=== PATIENT | female | born 1925 | race Caucasian/White ===

== ENCOUNTER 2016-04-01 07:15 | Inpatient (IN) | payer OTHER, MEDICARE ==
[~2016-04-01] VITALS: Ht 152.4 cm; Wt 72.1 kg
[~2016-04-01 07:15] MED LIST: ATORVASTATIN CA20 M1 PO; BENICAR20 M1 PO; MACROBID 100 M100 MG PO; METOPROLOL TART25 M1 PO
--- NOTE | 2016-04-01 07:19 | ED GENERAL ADULT ---
History of Present Illness General Chief Complaint: General Adult Stated Complaint: BIBA BLACK TARRY STOOL Source: patient, EMS Exam Limitations: confusion, dementia, poor historian Vital Signs & Intake/Output Vital Signs & Intake/Output Vital Signs Date Time Temp Pulse Resp B/P Pulse O2 O2 Flow FiO2 Ox Delivery Rate 04/02 0900 66 116/78 04/02 0900 66 116/78 04/02 0651 98.5 65 20 118/58 96 Room Air 04/01 2243 97 Nasal 2.0L Cannula 04/01 2204 98.8 73 20 132/70 91 Room Air 04/01 1517 98.7 70 20 160/70 97 04/01 1413 Nasal 2.0L Cannula ED Intake and Output 04/02 0000 04/01 1200 Intake Total 955 0 Output Total 150 Balance 805 0 Intake, IV 475 Intake, Oral 480 0 Number 3 Bowel Movements Output, Urine 150 Patient 159 lb 140 lb Weight Allergies Coded Allergies: No Known Allergies (04/01/16) Reconcile Medications Acetaminophen (Acephen) 650 MG SUPP.RECT 1 SUPP GA Q4 PRN PAIN OR TEMP >100 ( Reported) Acetaminophen (Mapap) 500 MG CAPSULE 1 CAP PO Q4 PRN PAIN OR TEMP > 100 ( Reported) Aspirin (Aspirin*) 81 MG TAB.CHEW 1 TAB PO DAILY HEART HEALTH (Reported) Atorvastatin Calcium 20 MG TABLET 1 TAB PO DAILY CHOLESTEROL (Reported) Bisacodyl (Bisac-Evac) 10 MG SUPP.RECT 1 SUPP GA DAILY PRN CONSTIPATION ( Reported) Ferrous Sulfate 325 MG (65 MG IRON) TABLET 1 TAB PO DAILY SUPPLEMENT ( Reported) Magnesium Hydroxide (Milk Of Magnesia) 400 MG/5 ML ORAL.SUSP 30 ML PO DAILY PRN CONSTIPATION (Reported) Memantine HCl (Namenda) 10 MG TABLET 1 TAB PO Q12HR ALZHEIMERS (Reported) Metoprolol Tartrate 25 MG TABLET 0.5 TAB PO Q12 HTN (Reported) HOLD FOR SBP < 100 OR HR < 60 Multivitamin (Daily Multiple Vitamin) 1 EACH TABLET 1 TAB PO DAILY SUPPLEMENT (Reported) Na Phos,M-B/Na Phos,Di-Ba (Fleet Enema) 19 GRAM-7 GRAM/118 ML ENEMA 1 E RC DAILY PRN CONSTIPATION (Reported) IF BISACODYL SUPP INEFFECTIVE Olmesartan Medoxomil (Benicar) 20 MG TABLET 1 TAB PO DAILY BLOOD PRESSURE ( Reported) Trazodone HCl 50 MG TABLET 0.5 TAB PO AT BED TIME PRN INSOMNIA (Reported) Vitamin E (Dl,Tocopheryl Acet) (Vitamin E) 400 UNIT CAPSULE 1 CAP PO DAILY SUPPLEMENT (Reported) Triage Nurses Notes Reviewed? yes Onset: Abrupt Duration: day(s): Timing: recent history HPI: 04/01/16 89-year-old female with a past medical history of dementia presents to the emergency department with black tarry stools for the past 2 days. the onset of the symptoms was abrupt. duration of the symptoms was 48 hours. the severity was significant; as her symptoms required to come to the emergency department for care. there is no history of vomiting. no abdominal pain. history is limited as she has dementia. Past History Travel History Traveled to [place] past 21 day No Medical History Any Pertinent Medical History? see below for history Neurological: dementia EENT: macular degeneration Cardiovascular: hypertension, hyperlipidemia Surgical History Surgical History: non-contributory, hysterectomy, thyroid surg, breast surg Psychosocial History Who do you live with Patient/Self Services at Home None What is your primary language Thai Family History Hx Contributory? No Review of Systems Review of Systems Constitutional: Denies: fever. EENTM: Reports: no symptoms. Respiratory: Reports: no symptoms. Cardiovascular: Reports: no symptoms. GI: Reports: bloody stool. Denies: abdominal pain, vomiting. Genitourinary: Reports: no symptoms. Musculoskeletal: Reports: no symptoms. Skin: Reports: no symptoms. Neurological/Psychological: Reports: confusion. Hematologic/Endocrine: Reports: bleeding. Immunologic/Allergic: Reports: no symptoms. Physical Exam Physical Exam General Appearance: anxious, mild distress Head: atraumatic Eyes: Bilateral: normal appearance, PERRL, EOMI. Ears, Nose, Throat: normal pharynx Neck: supple Respiratory: normal breath sounds, chest non-tender, no respiratory distress Cardiovascular: regular rate/rhythm Gastrointestinal: soft, non-tender Rectal: heme positive stool, done by emergency medical technician/driver Back: normal range of motion Extremities: no edema Neurologic/Psych: awake, alert Skin: pallor Core Measures ACS in differential dx? No CVA/TIA Diagnosis: No Severe Sepsis Present: No Septic Shock Present: No Progress Differential Diagnoses I considered the following diagnoses in my evaluation of the patient: [ carcinoma, diverticulosis, ischemic colitis, upper GI bleed] Plan of Care: Orders Procedure Date/time Status Patient Safety Monitor 04/02 0941 Active CBC WITHOUT DIFFERENTIAL 04/02 0600 Complete Lab Add-on Test 04/02 UNK Active Clear Liquid Diet 04/01 D Active CBC WITHOUT DIFFERENTIAL 04/01 1700 Complete Pain Treatment and Response 04/01 1511 Active Vital Signs 04/01 1412 Active Teach/Educate 04/01 141 Active Nutritional Intake, Monitor 04/01 1412 Active Isolation 04/01 1412 Active Intake & Output 04/01 1412 Active Patient Care Conference 04/01 1412 Active Activity/Ambulation 04/01 1412 Active Activity/Ambulation 04/01 1406 Active PT Evaluate & Treat 04/01 1208 Active Pathway - chart 04/01 1208 Active House Staff 04/01 1208 Active Patient Data 04/01 1208 Active Code Status 04/01 1208 Active MAGNESIUM 04/01 0726 Complete Therapeutic Activities 04/01 UNK Complete PT EVAL LOW COMPLEX 20 MIN 04/01 UNK Complete Gait Training 04/01 UNK Complete VTE Mechanical Prophylaxis 04/01 UNK Active Patient Safety Monitor 04/01 UNK Complete PHARMACY COMMUNICATION FORM 04/01 UNK Active Current Medications Sig/Ines Start time Last Medication Dose Stop Time Status Admin Acetaminophen 650 MG Q6-PRN PRN 04/01 1430 AC (Tylenol) Laboratory Tests 04/02/16 0638: CBC w Diff NO MAN DIFF REQ, RBC 2.73 L, MCV 84.9, MCH 28.5, RDW 15.1 H, MPV 11.1 H, Gran % 63.9, Lymphocytes % 25.9, Monocytes % 9.4 H, Eosinophils % 0.4, Basophils % 0.4, Absolute Granulocytes 5.3, Absolute Lymphocytes 2.1, Absolute Monocytes 0.8 H, Absolute Eosinophils 0, Absolute Basophils 0, PUBS MCHC 33.5 04/01/16 1701: CBC w Diff NO MAN DIFF REQ, RBC 2.87 L, MCV 85.4, MCH 28.2, RDW 15.3 H, MPV 10.8 H, Gran % 64.3, Lymphocytes % 23.6, Monocytes % 11.4 H, Eosinophils % 0.3 , Basophils % 0.4, Absolute Granulocytes 4.7, Absolute Lymphocytes 1.7, Absolute Monocytes 0.8 H, Absolute Eosinophils 0, Absolute Basophils 0, PUBS MCHC 33.0 Initial ED EKG: NSR, pac Prior EKG: unchanged Departure Departure Disposition: STILL A PATIENT Condition: Stable Clinical Impression Primary Impression: GI bleed Referrals: MINH BROWN,ERROL Carranza (PCP/Family) Departure Forms: Customer Survey General Discharge Information Admission Note Spoke With: SAMSON BROWN,DAVIDITH Documentation of Exam: Documentation of any treatments & extenuating circumstances including Concerns Regarding Discharge (functional status, medication knowledge or non-compliance, living conditions, etc.) that warrant an admission rather than observation: [The patient needs admission for serial hemoglobin and hematocrits, CT angiogram vs bleeding scan, GI consultation. The MOD was informed, GI evaluated the patient, the patient will need a CTA or bleeding scan] Critical Care Note Critical Care Note Critical Care Time: 30-74 min Comments: CT negative for definitive mass. patient received IV fluids. GI consultation was obtained in the emergency department. she was admitted to the hospital for further care.
--- NOTE | 2016-04-01 07:22 | NUR ---
PT BIBA FROM [facility] FOR BLACK TARRY STOOLS WITH BLOOD CLOTS IN IT FOR THE LAST TWO DAYS. PT OFFERS NO COMPLAINTS, BASELINE CONFUSED. PT'S COLOR WNL. PT ALSO TAKING IRON.
[2016-04-01] MEDS ORDERED: TRAZODONE HCL50 M1 PO (07:30)
[2016-04-01] MEDS ORDERED: ASPIRIN81 M4 PO (07:33)
[2016-04-01] MEDS ORDERED: BENICAR20 M1 PO (07:34)
--- NOTE | 2016-04-01 07:34 | NUR ---
IV EST. BLOODWORK SENT (LAV, SST, BLUE, CHOWDARY, PINK)
[2016-04-01] MEDS ORDERED: VITAMIN E400 UNI1 PO (07:35)
[2016-04-01] MEDS ORDERED: FERROUS SULFAT325 M3 PO (07:36)
[2016-04-01] MEDS ORDERED: NAMENDA10 M2 PO (07:37)
--- NOTE | 2016-04-01 07:39 | NUR ---
PER STUDENT, RECTAL EXAM COMPLETED - "LOTS OF EXTERNAL HEMMORHOIDS. BROWN STOOL, GUAIC POSITIVE"
--- NOTE | 2016-04-01 07:51 | NUR ---
WHILE PT WAS SLEEPING, PT WAS NOTED TO HAVE O2 SAT OF 86-89 % ON RA WITH STEADY WAVEFORM. PT PLACED ON 2L NC OXYGEN WITH IMPROVEMENT OF O2 SAT TO 99%.
[2016-04-01 07:58] LABS: ABSOLUTE BASOPHIL COUNT 0 /CUMM (0.0-0.2); ABSOLUTE EOSINOPHIL COUNT 0 /CUMM (0.0-0.7); BASOPHIL % 0.3 % (0.0-2.0); RED BLOOD CELL CT 3.12 /CUMM (4.20-5.40)
[2016-04-01 07:59] LABS: ABSOLUTE GRANULOCYTE CT 3.9 /CUMM (1.4-6.5); ABSOLUTE LYMPH COUNT 1.8 /CUMM (1.2-3.4); EOSINOPHIL % 0.3 % (0-5); GRANULOCYTE % 57.4 % (42.2-75.2); HEMATOCRIT 26.8 % (37-47); MEAN CORPUSCULAR HGB 28.1 PG (27.0-31.0); MEAN CORPUSCULAR HGB CONC 32.8 G/DL (33.0-37.0); MEAN CORPUSCULAR VOLUME 85.8 FL (81.0-99.0); MEAN PLATELET VOLUME 11.7 FL (7.4-10.4); PLATELET COUNT 174 /CUMM (130-400); WHITE BLOOD CELL COUNT 6.7 /CUMM (4.8-10.8)
--- NOTE | 2016-04-01 08:12 | NUR ---
PER FAMILY, PT LOOKS MORE PALE THAN USUAL AND HAS SEEMED MORE TIRED THAN USUAL. PER DAUGHTER, DR. WILKINSON WANTS PT TO SEE A GI SPECIALIST SINCE THERE HAVE BEEN MULTIPLE EPISODES OF BLOOD IN STOOL. A COUPLE WEEKS AGO PT HAD BLOOD IN STOOL BUT WAS NOT [facility].
[2016-04-01 08:22] LABS: PT 13.4 SEC (9.4-12.5); PTT 28 SEC (25-37)
--- NOTE | 2016-04-01 09:42 | NUR ---
PT TO CAT SCAN VIA STRETCHER.
--- NOTE | 2016-04-01 10:22 | CT SCAN REPORT ---
EXAMINATION: CT ABDOMEN AND PELVIS WITHOUT CONTRAST CLINICAL INFORMATION: GI bleed. Evaluate for mass. COMPARISON: No relevant prior imaging available. TECHNIQUE: Multidetector volumetric imaging was performed from the superior aspect of the liver through the pubic symphysis. Sagittal and coronal reformatted images were obtained on the technologist's workstation. DLP: 367.18 mGy-cm. FINDINGS: The diagnostic accuracy of this examination is limited due to the absence of intravenous contrast. There are numerous diverticula primarily involving the descending and sigmoid colon. A short segment of the sigmoid colon appears be distended with fluid or fecal material for instance best visualized on axial image 428 of 632 series 3. The remainder of the colon is unremarkable. The stomach and small bowel are normal. A tiny hiatal hernia is noted. The appendix is not visualized on this examination however there are no abnormal inflammatory changes within the right lower quadrant to suggest acute appendicitis. Liver attenuation is homogeneous. There is no discrete hepatic mass. No perihepatic fluid collection. The gallbladder is normal. No evidence of cholelithiasis. No abnormal extra hepatic biliary ductal dilatation. The spleen and pancreas are normal. There is mild thickening of the anterior limb of the left adrenal gland. The adrenal glands are otherwise unremarkable. Numerous well marginated cystic lesions are visualized within both kidneys. The architecture of the left kidney is significantly distorted by multiple large cysts. There is no hydroureteronephrosis. No abnormal mass or calcification is visualized along the expected course of the right or left ureters. The urinary bladder is partially distended with fluid. There are chronic changes of a hysterectomy. There is no worrisome adnexal mass. No perirectal or presacral inflammation. There is no free intraperitoneal air or fluid. No worrisome mesenteric or retroperitoneal adenopathy. The abdominal wall is grossly intact with exception of a tiny fat-containing umbilical hernia. There are numerous atheromatous calcification involving the abdominal aorta and iliac vessels. The unenhanced inferior vena cava is grossly unremarkable. Pleural-parenchymal scarring is visualized within the lung bases. There is no pleural or pericardial effusion. The heart is enlarged. There is no worrisome lytic or blastic osseous lesion. There is multilevel degenerative spondylosis of the lower thoracic and lumbar spine with loss of intervertebral disc height and associated sclerotic degenerative endplate changes with intervertebral vacuum disc phenomenon visualized at multiple levels. Grossly there is no evidence of acute fracture. IMPRESSION: The diagnostic accuracy of this examination is limited due to the absence of intravenous contrast. There is a short segment of the sigmoid colon demonstrates a fusiform shape that is filled with fluid or stool. The possibility of an intraluminal mass cannot be definitely excluded on the basis of this examination. Numerous diverticula are visualized within the descending and sigmoid colon. No abnormal inflammatory changes are visualized within the adjoining retroperitoneal or mesenteric fat to suggest the presence of acute diverticulitis. There are numerous benign-appearing cystic lesions visualized within both kidneys. There is advanced multilevel degenerative spondylosis of the lower thoracic and lumbar spine. No evidence of acute fracture.
--- NOTE | 2016-04-01 11:24 | NUR ---
pt admitted to room 220-1
--- NOTE | 2016-04-01 11:38 | NUR ---
REPORT GIVEN TO DARINEL SILVA.
--- NOTE | 2016-04-01 11:40 | NUR ---
HOUSE STAFF AT BEDSIDE.
[2016-04-01] MEDS ORDERED: METOPROLOL TART25 M1 PO (12:11)
[2016-04-01] MEDS ORDERED: ACEPHEN650 M1 PR (12:13)
[2016-04-01] MEDS ORDERED: BISAC-EVAC10 M1 PR (12:14)
[2016-04-01] MEDS ORDERED: FLEET ENEMA133 ML RC (12:15)
[2016-04-01] MEDS ORDERED: MAPAP500 M2 PO (12:17)
[2016-04-01] MEDS ORDERED: MILK OF MA400 MG/52 PO (12:18)
[2016-04-01] MEDS ORDERED: DAILY MULTIPLE1 EACH PO (12:20)
--- NOTE | 2016-04-01 13:04 | Cons- Gastroenterology ---
General Information and HPI Consulting Request Date of Consult: 04/01/16 Requested By: AJAY DAVIES MD Reason for Consult: Rectal bleeding, anemia. Change in bowel habits. Source of Information: family, old records Exam Limitations: confusion, dementia History of Present Illness: Ms. Moore is an 89-year-old female with multiple medical problems who is currently residing in [facility] who was sent in to [facility] this morning for reports of bright red blood per rectum and dark stool. Apparently she has been noted to have bright red blood in her diaper over the preceding 2 days and had another bowel movement this morning with blood in it and this bowel movement was also described as black for which she was sent to the emergency room. She has not been complaining of any significant abdominal pain nor has she had any significant nausea or vomiting. Prior to the blood she had reportedly been having normal bowel movements. The family denies ever having bleeding like this in the past. She has also never had a colonoscopy in the past. She is without any complaints of lightheadedness, shortness of breath , or chest pain. In the emergency room she was noted to have dark stool which was found to be guaiac positive, but no gross blood was appreciated. She was also noted to have prominent external hemorrhoids. She has been hemodynamically stable since arrival and she has not had any bowel movements since arriving to the emergency room at approximate 7:00 this morning. Allergies/Medications Allergies: Coded Allergies: No Known Allergies (04/01/16) Home Med List: Acetaminophen (Acephen) 650 MG SUPP.RECT 1 SUPP HI Q4 PRN PAIN OR TEMP >100 ( Reported) Acetaminophen (Mapap) 500 MG CAPSULE 1 CAP PO Q4 PRN PAIN OR TEMP > 100 ( Reported) Atorvastatin Calcium 20 MG TABLET 1 TAB PO DAILY CHOLESTEROL (Reported) Augmentin (Augmentin 500-125 Tablet) 500 MG-125 MG TABLET 500 MG PO Q12 diverticulitis Bisacodyl (Bisac-Evac) 10 MG SUPP.RECT 1 SUPP HI DAILY PRN CONSTIPATION ( Reported) Ferrous Sulfate 325 MG (65 MG IRON) TABLET 1 TAB PO DAILY SUPPLEMENT ( Reported) Magnesium Hydroxide (Milk Of Magnesia) 400 MG/5 ML ORAL.SUSP 30 ML PO DAILY PRN CONSTIPATION (Reported) Memantine HCl (Namenda) 10 MG TABLET 1 TAB PO Q12HR ALZHEIMERS (Reported) Metoprolol Tartrate 25 MG TABLET 0.5 TAB PO Q12 HTN (Reported) HOLD FOR SBP < 100 OR HR < 60 Multivitamin (Daily Multiple Vitamin) 1 EACH TABLET 1 TAB PO DAILY SUPPLEMENT (Reported) Na Phos,M-B/Na Phos,Di-Ba (Fleet Enema) 19 GRAM-7 GRAM/118 ML ENEMA 1 E RC DAILY PRN CONSTIPATION (Reported) IF BISACODYL SUPP INEFFECTIVE Olmesartan Medoxomil (Benicar) 20 MG TABLET 1 TAB PO DAILY BLOOD PRESSURE ( Reported) Trazodone HCl 50 MG TABLET 0.5 TAB PO AT BED TIME PRN INSOMNIA (Reported) Vitamin E (Dl,Tocopheryl Acet) (Vitamin E) 400 UNIT CAPSULE 1 CAP PO DAILY SUPPLEMENT (Reported) Current Medications: Current Medications Sig/Ines Start time Last Medication Dose Route Stop Time Status Admin Sodium Chloride 1,000 ML ONCE ONE 04/01 0745 AC 04/01 IV 04/01 1424 0811 Past History Travel History Traveled to [place] past 21 day No Medical History Neurological: dementia EENT: macular degeneration, LEGALLY BLIND Cardiovascular: hypertension, hyperlipidemia Respiratory: NONE Gastrointestinal: NONE Hepatic: NONE Renal: NONE Musculoskeletal: MUSCLE WEAKNESS Psychiatric: insomnia Endocrine: NONE Blood Disorders: NONE Cancer(s): NONE COMBER TENDER/Reproductive: NONE Surgical History Surgical History: non-contributory, hysterectomy, thyroid surg, breast surg Psychosocial History Services at Home: None Review of Systems Review of Systems: A full 12 point review of systems was unobtainable secondary to dementia. Exam & Diagnostic Data Vital Signs and I&O Vital Signs Date Time Temp Pulse Resp B/P Pulse O2 O2 Flow FiO2 Ox Delivery Rate 04/01 1037 98.0 74 18 133/60 98 Room Air 04/01 0728 Room Air Room Air 04/01 0718 97.7 94 15 138/77 92 Room Air Room Air Intake & Output 04/01 1600 04/01 0400 03/31 1600 03/31 0400 03/30 1600 03/30 040 Intake Total 0 Output Total Balance 0 Intake, Oral 0 Patient 140 lb Weight Physical Exam General Appearance: no apparent distress, alert, comfortable Head: atraumatic, normal appearance Eyes: Bilateral: normal appearance. Ears, Nose, Throat: normal pharynx, normal ENT inspection Neck: normal inspection, supple, full range of motion Respiratory: normal breath sounds, chest non-tender, no respiratory distress Cardiovascular: regular rate/rhythm Gastrointestinal: normal bowel sounds, soft, non-tender, no organomegaly Rectal: deferred, dark, guaiac positive stool per ED with external hemorrhoids Back: normal inspection, normal range of motion Extremities: normal inspection, no edema Neurologic/Psych: no motor/sensory deficits, awake, alert Skin: intact, normal color Results Pertinent Lab Results: Laboratory Tests 04/01 0726 Chemistry Sodium (137 - 145 mmol/L) 137 Potassium (3.5 - 5.1 mmol/L) 3.0 L Chloride (98 - 107 mmol/L) 101 Carbon Dioxide (22 - 30 mmol/L) 33 H Anion Gap (5 - 16) 4 L BUN (7 - 17 mg/dL) 15 Creatinine (0.5 - 1.0 mg/dL) 0.6 Estimated GFR (>60 ml/min) > 60 BUN/Creatinine Ratio (7 - 25 %) 25.0 Glucose (65 - 99 mg/dL) 98 Lactic Acid (0.7 - 2.1 mmol/L) 1.0 Calcium (8.4 - 10.2 mg/dL) 8.3 L Total Bilirubin (0.2 - 1.3 mg/dL) 0.7 AST (14 - 36 U/L) 17 ALT (9 - 52 U/L) 27 Alkaline Phosphatase (<127 U/L) 101 Troponin I (< 0.11 ng/ml) < 0.01 Total Protein (6.3 - 8.2 g/dL) 6.1 L Albumin (3.5 - 5.0 g/dL) 3.0 L Globulin (1.9 - 4.2 gm/dL) 3.1 Albumin/Globulin Ratio (1.1 - 2.2 %) 1.0 L Coagulation PT (9.4 - 12.5 SEC) 13.4 H INR (0.90 - 1.19) 1.28 H APTT (25 - 37 SEC) 28 Hematology CBC w Diff NO MAN DIFF REQ WBC (4.8 - 10.8 /CUMM) 6.7 RBC (4.20 - 5.40 /CUMM) 3.12 L Hgb (12.0 - 16.0 G/DL) 8.8 L Hct (37 - 47 %) 26.8 L MCV (81.0 - 99.0 FL) 85.8 MCH (27.0 - 31.0 PG) 28.1 RDW (11.5 - 14.5 %) 15.0 H Plt Count (130 - 400 /CUMM) 174 MPV (7.4 - 10.4 FL) 11.7 H Gran % (42.2 - 75.2 %) 57.4 Lymphocytes % (20.5 - 51.1 %) 26.5 Monocytes % (1.7 - 9.3 %) 15.5 H Eosinophils % (0 - 5 %) 0.3 Basophils % (0.0 - 2.0 %) 0.3 Absolute Granulocytes (1.4 - 6.5 /CUMM) 3.9 Absolute Lymphocytes (1.2 - 3.4 /CUMM) 1.8 Absolute Monocytes (0.10 - 0.60 /CUMM) 1.0 H Absolute Eosinophils (0.0 - 0.7 /CUMM) 0 Absolute Basophils (0.0 - 0.2 /CUMM) 0 PUBS MCHC (33.0 - 37.0 G/DL) 32.8 L Imaging/Other Studies: ct scan: FINDINGS: The diagnostic accuracy of this examination is limited due to the absence of intravenous contrast. There are numerous diverticula primarily involving the descending and sigmoid colon. A short segment of the sigmoid colon appears be distended with fluid or fecal material for instance best visualized on axial image 428 of 632 series 3. The remainder of the colon is unremarkable. The stomach and small bowel are normal. A tiny hiatal hernia is noted. The appendix is not visualized on this examination however there are no abnormal inflammatory changes within the right lower quadrant to suggest acute appendicitis. Liver attenuation is homogeneous. There is no discrete hepatic mass. No perihepatic fluid collection. The gallbladder is normal. No evidence of cholelithiasis. No abnormal extra hepatic biliary ductal dilatation. The spleen and pancreas are normal. There is mild thickening of the anterior limb of the left adrenal gland. The adrenal glands are otherwise unremarkable. Numerous well marginated cystic lesions are visualized within both kidneys. The architecture of the left kidney is significantly distorted by multiple large cysts. There is no hydroureteronephrosis. No abnormal mass or calcification is visualized along the expected course of the right or left ureters. The urinary bladder is partially distended with fluid. There are chronic changes of a hysterectomy. There is no worrisome adnexal mass. No perirectal or presacral inflammation. There is no free intraperitoneal air or fluid. No worrisome mesenteric or retroperitoneal adenopathy. The abdominal wall is grossly intact with exception of a tiny fat-containing umbilical hernia. There are numerous atheromatous calcification involving the abdominal aorta and iliac vessels. The unenhanced inferior vena cava is grossly unremarkable. Pleural-parenchymal scarring is visualized within the lung bases. There is no pleural or pericardial effusion. The heart is enlarged. There is no worrisome lytic or blastic osseous lesion. There is multilevel degenerative spondylosis of the lower thoracic and lumbar spine with loss of intervertebral disc height and associated sclerotic degenerative endplate changes with intervertebral vacuum disc phenomenon visualized at multiple levels. Grossly there is no evidence of acute fracture. IMPRESSION: The diagnostic accuracy of this examination is limited due to the absence of intravenous contrast. There is a short segment of the sigmoid colon demonstrates a fusiform shape that is filled with fluid or stool. The possibility of an intraluminal mass cannot be definitely excluded on the basis of this examination. Numerous diverticula are visualized within the descending and sigmoid colon. No abnormal inflammatory changes are visualized within the adjoining retroperitoneal or mesenteric fat to suggest the presence of acute diverticulitis. There are numerous benign-appearing cystic lesions visualized within both kidneys. There is advanced multilevel degenerative spondylosis of the lower thoracic and lumbar spine. No evidence of acute fracture. Assessment/Plan Assessment/Recommendations: Assessment: Ms. Moore is an 89-year-old female multiple medical problems who has been noted to have bright red blood per rectum over the past 2 days without any significant abdominal pain of uncertain etiology. She has had a moderate drop in her hemoglobin over the past 6 weeks of about 2-3 g, but she is currently hemodynamically stable and has not had any further rectal bleeding since early this morning so I suspect whenever has been bleeding has stopped. Considering the lack of pain it is possible she has had a self-limited diverticular bleed or it is also possible she has been bleeding from hemorrhoids , but it would be a bit unusual for her hemoglobin to fall as much as it did from just hemorrhoidal bleeding. She has never had a colonoscopy before so an occult malignancy is also possible, and her CAT scan did show a possible colonic lesion, but this was limited due to lack of contrast. It is also possible she could be bleeding from an AVM or a dieulafoys lesion and a rapid transit upper GI bleed is also in the differential, however this is very unlikely with her being so stable and not having melena. Considering her advanced age and underlying dementia the family does not want to pursue any invasive testing unless it is absolutely necessary so we'll tentatively only plan to pursue a colonoscopy if life-threatening bleeding ensues. Of note, even if there is a colonic malignancy as the patient's family is not interested in pursuing surgical intervention making this diagnosis is not absolutely necessary. Recognitions: 1. Admit to the medical floor. 2. Keep on a liquid diet for now with nothing red administered. 3. Follow CBCs every 12 hours and transfuse as needed to keep her hemoglobin greater than 8 or as per cardiology recommendations. 4. Hold NSAIDs for now. 5. Check a CT angiogram or tagged red blood cell scan to look for evidence of ongoing active bleeding and would defer to radiology as to which test they would prefer to perform. 6. GI should be notified for any signs of overt, active, hemodynamically significant bleeding, but unless this occurs will tentaively plan to manage this without endoscopic intervention. I will continue to follow this patient and make further recommendations based on her clinical course and results of repeat blood work and imaging. Problem List: 1. GI bleed Copies To: MINH BROWN,ERROL Buckner. Consult Acknowledgment - Thank you for your consult request.
--- NOTE | 2016-04-01 13:05 | History & Physical ---
WILMA DOSS 04/01/16 1305: General Information and HPI Source of Information: family, old records Exam Limitations: confusion, dementia History of Present Illness: She is 84-year-old woman with past medical history of hypertension, hyperlipidemia, recurrent UTIs, dementia and normocytic anemia BIBA from [facility] for black tarry stools with blood clots. First episode was last night and second episode was this morning. Daughters are at bedside. Upon my interview patient is complaining of fatigue but denies any nausea, vomiting, abdominal pain, dizziness or lightheadedness, chest pain or discomfort. She complained for abdominal pain to her daughters. According to [facility] staff patient had blood in her stool 2 weeks ago but it was not investigated. It is first time she is having blood in her stool. She never had colonoscopy in past. No family history of colon cancer. Allergies/Medications Allergies: Coded Allergies: No Known Allergies (04/01/16) Home Med list Acetaminophen (Acephen) 650 MG SUPP.RECT 1 SUPP FL Q4 PRN PAIN OR TEMP >100 ( Reported) Acetaminophen (Mapap) 500 MG CAPSULE 1 CAP PO Q4 PRN PAIN OR TEMP > 100 ( Reported) Aspirin (Aspirin*) 81 MG TAB.CHEW 1 TAB PO DAILY HEART HEALTH (Reported) Atorvastatin Calcium 20 MG TABLET 1 TAB PO DAILY CHOLESTEROL (Reported) Bisacodyl (Bisac-Evac) 10 MG SUPP.RECT 1 SUPP FL DAILY PRN CONSTIPATION ( Reported) Ferrous Sulfate 325 MG (65 MG IRON) TABLET 1 TAB PO DAILY SUPPLEMENT ( Reported) Magnesium Hydroxide (Milk Of Magnesia) 400 MG/5 ML ORAL.SUSP 30 ML PO DAILY PRN CONSTIPATION (Reported) Memantine HCl (Namenda) 10 MG TABLET 1 TAB PO Q12HR ALZHEIMERS (Reported) Metoprolol Tartrate 25 MG TABLET 0.5 TAB PO Q12 HTN (Reported) HOLD FOR SBP < 100 OR HR < 60 Multivitamin (Daily Multiple Vitamin) 1 EACH TABLET 1 TAB PO DAILY SUPPLEMENT (Reported) Na Phos,M-B/Na Phos,Di-Ba (Fleet Enema) 19 GRAM-7 GRAM/118 ML ENEMA 1 E RC DAILY PRN CONSTIPATION (Reported) IF BISACODYL SUPP INEFFECTIVE Olmesartan Medoxomil (Benicar) 20 MG TABLET 1 TAB PO DAILY BLOOD PRESSURE ( Reported) Trazodone HCl 50 MG TABLET 0.5 TAB PO AT BED TIME PRN INSOMNIA (Reported) Vitamin E (Dl,Tocopheryl Acet) (Vitamin E) 400 UNIT CAPSULE 1 CAP PO DAILY SUPPLEMENT (Reported) Past History Travel History Traveled to [place] past 21 day No Medical History Neurological: dementia EENT: macular degeneration, LEGALLY BLIND Cardiovascular: hypertension, hyperlipidemia Respiratory: NONE Gastrointestinal: NONE Hepatic: NONE Renal: NONE Musculoskeletal: MUSCLE WEAKNESS Psychiatric: insomnia Endocrine: NONE Blood Disorders: NONE Cancer(s): 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 Exam & Diagnostic Data Last 24 Hrs of Vital Signs/I&O Vital Signs Date Time Temp Pulse Resp B/P Pulse O2 O2 Flow FiO2 Ox Delivery Rate 04/01 1517 98.7 70 20 160/70 97 04/01 1413 Nasal 2.0L Cannula 04/01 1037 98.0 74 18 133/60 98 Room Air 04/01 0728 Room Air Room Air 04/01 0718 97.7 94 15 138/77 92 Room Air Room Air Intake & Output 04/01 1600 04/01 0800 04/01 0000 Intake Total 75 0 Output Total 150 Balance -75 0 Intake, IV 75 Intake, Oral 0 0 Number 3 Bowel Movements Output, Urine 150 Patient 159 lb 140 lb Weight Physical Exam General Appearance Alert, Cooperative, No Acute Distress, oriented to place and person Skin pale HEENT dry mucous membrabes Neck Supple Cardiovascular Regular Rate, systolic murmur Lungs Clear to Auscultation Abdomen Normal Bowel Sounds, Soft, No Tenderness Neurological Strength at 5/5 X4 Ext, Sensation Intact, Cranial Nerves 3-12 NL Extremities No Edema Last 24 Hrs of Labs/Prakash: Laboratory Tests 04/01/16 0726: Anion Gap 4 L, Estimated GFR > 60, BUN/Creatinine Ratio 25.0, Glucose 98, Lactic Acid 1.0, Calcium 8.3 L, Total Bilirubin 0.7, AST 17, ALT 27, Alkaline Phosphatase 101, Troponin I < 0.01, Total Protein 6.1 L, Albumin 3.0 L, Globulin 3.1, Albumin/Globulin Ratio 1.0 L, PT 13.4 H, INR 1.28 H, APTT 28, CBC w Diff NO MAN DIFF REQ, RBC 3.12 L, MCV 85.8, MCH 28.1, RDW 15.0 H, MPV 11.7 H, Gran % 57.4, Lymphocytes % 26.5, Monocytes % 15.5 H, Eosinophils % 0.3 , Basophils % 0.3, Absolute Granulocytes 3.9, Absolute Lymphocytes 1.8, Absolute Monocytes 1.0 H, Absolute Eosinophils 0, Absolute Basophils 0, PUBS MCHC 32.8 L Diagnostic Data EKG Results Normal sinus rhythm without any acute ST-T wave changes. QTC [address] abdomen and pelvis without IV contrast showed early mild diverticulitis with microperforation. Kidney cysts Assessment/Plan Assessment: She is 84-year-old woman with past medical history of hypertension, hyperlipidemia, recurrent UTIs, dementia and normocytic anemia BIBA from [facility] for black tarry stools with blood clots. Patient did not have any bowel movement since admission. Her stool guaiac was positive. She is hemodynamically stable. Dr. Saucedo already saw the patient and give his recommendations. Daughters are refusing to do any upper GI endoscopy or colonoscopy. They want to do a scan first to see if there is any GI bleed. Problem list 1. GI bleed. CAT scan findings showed mild early diverticulitis with microperforation so it is a possibility that patient is having diverticular bleed and passing blood clots. Black tarry stool could be because of iron supplements that she was taking before admission. 2. Normocytic anemia 3. Hypokalemia Plan Will admit patient to general medicine floor. Monitor vitals closely. We will do CT angiogram to see the site of bleeding. Gentle hydration as patient is nothing by mouth for now. We'll follow further GI recommendations. IV Unasyn for early mild diverticulitis. Call GI if overt GI bleed. Will monitor CBC. Goal hemoglobin is >8. We will transfuse if hemoglobin is less than 8. Pain management with Tylenol and IV morphine. Clear liquid diet. No NSAIDs. Oral PPI. Will monitor electrolytes daily and replete accordingly. Continue iron supplements. Alps for DVT prophylaxis. DNR/DNI. As Ranked By This Provider Problem List: 1. GI bleed Core Measures/Miscellaneous Acute Coronary Syndrome ACS Diagnosis: No Cerebrovascular Accident CVA/TIA Diagnosis: No Congestive Heart Failure CHF Diagnosis: No Venous Thromboembolism VTE Risk Factors: Acute medical illness, Age > 40 VTE Prophylaxis Ordered Inpt: Mechanical (ALPS/TEDS) No Mech VTE prophylaxis d/t: No contraindications No VTE Pharm Prophylaxis d/t: Active bleeding VTE Diagnosis: No VTE Type: NONE VTE Confirmed by (Test): NONE Severe Sepsis Severe Sepsis Present: No Septic Shock Septic Shock Present: No Miscellaneous Documentation Attending Case Discussed With: AJAY DAVIES MD Primary Care Physician: ERROL WILKINSON MD Patient sees these Specialists none Level of Patient Care: General Medicine Consults Needed: Consulting Specialty: Gastroenterology AJAY DAVIES MD 04/01/16 2918: Attending MD Review Statement Attending Statement Attending MD Statement: examined this patient, discuss w/resident/PA/INSPECTOR AND ADJUSTER [employer], agreed w/resident/PA/INSPECTOR AND ADJUSTER [employer], discussed with family, reviewed EMR data (avail) Attending Assessment/Plan: 84-year-old female with history of hypertension, hyperlipidemia, dementia and legally blind who is a current resident at long-term care facility presenting with black tarry stools and blood clots. She complains of abdominal pain. CAT scan suggested diverticulitis and CTA confirmed possible diverticular bleed as the cause of her GI bleed. She does have microabscesses without any obvious perforation. Plan Unasyn Follow cultures Start clear liquid diet Surgical evaluation for possible micro perforation and abscesses Resume all home medication Hold all blood thinners Alps for DVT prophylaxis
[2016-04-01 15:17] VITALS: BP 160/70
--- NOTE | 2016-04-01 16:56 | CT SCAN REPORT ---
EXAMINATION: CT ANGIOGRAM ABDOMEN AND PELVIS CLINICAL INFORMATION: Black and tarry stools with clots. COMPARISON: 04/01/2016 TECHNIQUE: Multiple axial images were obtained through the abdomen and pelvis following the administration of 125 mL of Optiray 350 intravenous contrast. Images were reviewed on a dedicated 3-D workstation. DLP: 874 mGy-cm. FINDINGS: Vascular: 1. 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 There is poststenotic dilatation. 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 The remainder of the celiac axis is patent areas the superior mesenteric artery and inferior mesenteric artery are unremarkable with patent origins. 2. There are 2 right-sided renal arteries and 2 left-sided renal arteries. These are patent. 3. The infrarenal abdominal aorta is normal in course and caliber with mild atherosclerotic disease. 4. The common iliac arteries, internal and external iliac arteries, and common femoral arteries are widely patent. Nonvascular: Right basilar subsegmental atelectasis. The liver is normal in size, shape, and attenuation. The gallbladder is unremarkable. Heterogeneous attenuation of the spleen is likely secondary to the timing of contrast. The pancreas and adrenal glands are unremarkable. No hydronephrosis. There are prominent cysts throughout the left kidney. The largest is seen at the upper pole, measuring 6.2 cm. Within the right kidney, in addition to simple cysts, there is a heterogeneously enhancing mass at the midpole which measures 2.7 x 2.8 x 2.2 cm. The stomach and small bowel appear unremarkable. No obstruction. There is pancolonic diverticulosis. There is wall thickening involving the sigmoid colon, as seen on the recent prior CT. There is adjacent inflammatory change, consistent with diverticulitis. There is a peripherally enhancing region along the superior wall of the sigmoid colon which measures 2.1 x 2.8 x 2.1 cm, which could represent a prominent diverticulum or a peridiverticular abscess. No free air. The bladder is unremarkable. The uterus is not seen. No adnexal mass. No lymphadenopathy. Diffuse atherosclerotic calcifications. Diffuse degenerative changes throughout the spine. Degenerative changes of the hips. IMPRESSION: 1. No significant vascular abnormality. 2. Sigmoid diverticulitis. Suspect small peridiverticular abscess. 3. Enhancing right mid to upper pole renal mass. This is suspicious for neoplasm. This critical result was discussed with Dr. Taylor by telephone at 04/01/2016 4:52 PM and it was ascertained that the content and urgency of the report was understood at the time of direct communication.
--- NOTE | 2016-04-01 17:24 | Event Note ---
Event Note Event Note: Situation: Received a call from radiology for a critical read on a patinets CT/ Angio and abdomen Brief Assesment * CT preliminary read from Dr Gar : No significant vascular abnormality. Sigmoid diverticulitis. Suspect small peridiverticular abscess. Enhancing right mid to upper pole renal mass suspicious for neoplasm. * Contacted surgical team regarding the findings. Surgical team informed me that they have seen the patinet and are aware of the CT findings including the small peridiverticular abscess, and their plan was to continue monitoring with no surgical intervention plan as of now. * Pt is already on Unasyn.
[2016-04-01 17:32] LABS: ABSOLUTE BASOPHIL COUNT 0 /CUMM (0.0-0.2); ABSOLUTE EOSINOPHIL COUNT 0 /CUMM (0.0-0.7); ABSOLUTE GRANULOCYTE CT 4.7 /CUMM (1.4-6.5); ABSOLUTE LYMPH COUNT 1.7 /CUMM (1.2-3.4); ABSOLUTE MONOCYTE COUNT 0.8 /CUMM (0.10-0.60); BASOPHIL % 0.4 % (0.0-2.0); EOSINOPHIL % 0.3 % (0-5); GRANULOCYTE % 64.3 % (42.2-75.2); HEMATOCRIT 24.5 % (37-47); MEAN CORPUSCULAR HGB 28.2 PG (27.0-31.0); MEAN CORPUSCULAR VOLUME 85.4 FL (81.0-99.0); MEAN PLATELET VOLUME 10.8 FL (7.4-10.4); PLATELET COUNT 156 /CUMM (130-400); RBC DISTRIBUTION WIDTH 15.3 % (11.5-14.5); RED BLOOD CELL CT 2.87 /CUMM (4.20-5.40); WHITE BLOOD CELL COUNT 7.3 /CUMM (4.8-10.8)
--- NOTE | 2016-04-01 18:55 | Admission Certification ---
Admission Certification Certification Statement - As attending physician, I certify that at the time of - admission, based on clinical presentation, severity of - symptoms, need for further diagnostic testing and - therapeutic interventions, and risk of adverse outcomes - without in-hospital treatment, in my clinical assessment, - this patient requires an acute hospital stay for a minimum - of two nights or longer. I have also considered psychsocial - factors such as support system, advanced age, financial - issues, cognitive issues, and failed out-patient treatments, - past re-admission history, safety of patient, and lack of - compliance as applicable. Specific rationale supporting this admission is: Diverticulitis
--- NOTE | 2016-04-01 19:26 | Cons- General Surgery ---
HORT[place]IA POND 04/01/16 6029: General Information and HPI Consulting Request Date of Consult: 04/01/16 Requested By[facility] Reason for Consult: mild c/o abdominal pain ct scan demonstrating diveticular abscess Source of Information: family, old records Exam Limitations: dementia History of Present Illness: She is 84-year-old woman with past medical history of hypertension, hyperlipidemia, recurrent UTIs, dementia and normocytic anemia BIBA from [facility] for black tarry stools with blood clots. First episode was last night and second episode was this morning. Daughters are at bedside. Upon my interview patient is complaining of fatigue but denies any nausea, vomiting, abdominal pain, dizziness or lightheadedness, chest pain or discomfort. She complained for abdominal pain to her daughters. According to [facility] staff patient had blood in her stool 2 weeks ago but it was not investigated. It is first time she is having blood in her stool. She never had colonoscopy in past. No family history of colon cancer. CTA of abdomen demonstrates diverticular abscess of the sigmoid colon without evidence of free air Allergies/Medications Allergies: Coded Allergies: No Known Allergies (04/01/16) Home Med List: Acetaminophen (Acephen) 650 MG SUPP.RECT 1 SUPP DE Q4 PRN PAIN OR TEMP >100 ( Reported) Acetaminophen (Mapap) 500 MG CAPSULE 1 CAP PO Q4 PRN PAIN OR TEMP > 100 ( Reported) Aspirin (Aspirin*) 81 MG TAB.CHEW 1 TAB PO DAILY HEART HEALTH (Reported) Atorvastatin Calcium 20 MG TABLET 1 TAB PO DAILY CHOLESTEROL (Reported) Bisacodyl (Bisac-Evac) 10 MG SUPP.RECT 1 SUPP DE DAILY PRN CONSTIPATION ( Reported) Ferrous Sulfate 325 MG (65 MG IRON) TABLET 1 TAB PO DAILY SUPPLEMENT ( Reported) Magnesium Hydroxide (Milk Of Magnesia) 400 MG/5 ML ORAL.SUSP 30 ML PO DAILY PRN CONSTIPATION (Reported) Memantine HCl (Namenda) 10 MG TABLET 1 TAB PO Q12HR ALZHEIMERS (Reported) Metoprolol Tartrate 25 MG TABLET 0.5 TAB PO Q12 HTN (Reported) HOLD FOR SBP < 100 OR HR < 60 Multivitamin (Daily Multiple Vitamin) 1 EACH TABLET 1 TAB PO DAILY SUPPLEMENT (Reported) Na Phos,M-B/Na Phos,Di-Ba (Fleet Enema) 19 GRAM-7 GRAM/118 ML ENEMA 1 E RC DAILY PRN CONSTIPATION (Reported) IF BISACODYL SUPP INEFFECTIVE Olmesartan Medoxomil (Benicar) 20 MG TABLET 1 TAB PO DAILY BLOOD PRESSURE ( Reported) Trazodone HCl 50 MG TABLET 0.5 TAB PO AT BED TIME PRN INSOMNIA (Reported) Vitamin E (Dl,Tocopheryl Acet) (Vitamin E) 400 UNIT CAPSULE 1 CAP PO DAILY SUPPLEMENT (Reported) Current Medications: Current Medications Sig/Ines Start time Last Medication Dose Route Stop Time Status Admin Acetaminophen 650 MG Q6-PRN PRN 04/01 1430 AC PO Ampicillin Sodium/ 3,000 MG Q6H 04/01 2200 AC Sulbactam Sodium IV Sodium Chloride 100 ML Ampicillin Sodium/ 3,000 MG Q6 04/01 1300 DC 04/01 Sulbactam Sodium IV 1605 Sodium Chloride 100 ML Atorvastatin Calcium 20 MG 1700 04/01 1700 AC 04/01 PO 1604 Dextrose/Sodium 1,000 ML .[id number] 04/01 1215 AC 04/01 Chloride IV 04/02 0134 1605 Ferrous Sulfate 325 MG DAILY 04/02 1000 AC PO Losartan Potassium 50 MG DAILY 04/01 1750 AC PO Losartan Potassium 20 MG DAILY 04/01 1642 DC PO Memantine 10 MG Q12 04/01 2200 AC PO Metoprolol Tartrate 12.5 MG Q12 04/01 2200 AC PO Morphine Sulfate 2 MG Q6P PRN 04/01 1430 AC 04/01 IV 1448 Multivitamins 1 TAB DAILY 04/02 1000 AC Therapeutic PO Omeprazole 40 MG DAILY AC 04/02 0700 AC PO Patient Medication 1 UNIT ONE NR 04/01 1800 GA Teaching ED 04/01 1830 Patient Medication 1 ED ONE ONE 04/01 1415 GA Teaching ED 04/01 1416 Potassium Chloride 40 MEQ ONCE ONE 04/01 1300 DC 04/01 PO 04/01 1301 1604 Sodium Chloride 1,000 ML ONCE ONE 04/01 0745 DC 04/01 IV 04/01 1424 0811 Trazodone HCl 25 MG AT BEDTIME 04/01 2200 AC PO Vitamin E 400 IU DAILY 04/02 1000 AC PO Past History Medical History Blood Transfusion Hx: No Neurological: dementia EENT: macular degeneration, LEGALLY BLIND Cardiovascular: hypertension, hyperlipidemia, MURMUR Respiratory: NONE Gastrointestinal: diverticulitis Hepatic: NONE Renal: NONE Musculoskeletal: MUSCLE WEAKNESS Psychiatric: INSOMINA Endocrine: NONE Blood Disorders: NONE Cancer(s): 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 Extended Care Facility Services at Home: None Smoking Status: Former Smoker Exam & Diagnostic Data Vital Signs and I&O Vital Signs Date Time Temp Pulse Resp B/P Pulse O2 O2 Flow FiO2 Ox Delivery Rate 04/01 1517 98.7 70 20 160/70 97 04/01 1413 Nasal 2.0L Cannula 04/01 1037 98.0 74 18 133/60 98 Room Air 04/01 0728 Room Air Room Air 04/01 0718 97.7 94 15 138/77 92 Room Air Room Air Intake & Output 04/01 1600 04/01 0800 04/01 0000 03/31 1600 03/31 0800 03/31 0000 Intake Total 75 0 Output Total 150 Balance -75 0 Intake, IV 75 Intake, Oral 0 0 Number 3 Bowel Movements Output, Urine 150 Patient 159 lb 140 lb Weight Physical Exam General Appearance: alert, awake, mild distress Head: atraumatic, normal appearance Respiratory: normal breath sounds Cardiovascular: regular rate/rhythm Gastrointestinal: mild tenderness to deep palp of left lower quadrant, no guarding, non distended, hypoactive bs Extremities: no edema Last 24 Hours of Labs: Laboratory Tests 04/01 04/01 1701 0726 Chemistry Sodium (137 - 145 mmol/L) 137 Potassium (3.5 - 5.1 mmol/L) 3.0 L Chloride (98 - 107 mmol/L) 101 Carbon Dioxide (22 - 30 mmol/L) 33 H Anion Gap (5 - 16) 4 L BUN (7 - 17 mg/dL) 15 Creatinine (0.5 - 1.0 mg/dL) 0.6 Estimated GFR (>60 ml/min) > 60 BUN/Creatinine Ratio (7 - 25 %) 25.0 Glucose (65 - 99 mg/dL) 98 Lactic Acid (0.7 - 2.1 mmol/L) 1.0 Calcium (8.4 - 10.2 mg/dL) 8.3 L Total Bilirubin (0.2 - 1.3 mg/dL) 0.7 AST (14 - 36 U/L) 17 ALT (9 - 52 U/L) 27 Alkaline Phosphatase (<127 U/L) 101 Troponin I (< 0.11 ng/ml) < 0.01 Total Protein (6.3 - 8.2 g/dL) 6.1 L Albumin (3.5 - 5.0 g/dL) 3.0 L Globulin (1.9 - 4.2 gm/dL) 3.1 Albumin/Globulin Ratio (1.1 - 2.2 %) 1.0 L Coagulation PT (9.4 - 12.5 SEC) 13.4 H INR (0.90 - 1.19) 1.28 H APTT (25 - 37 SEC) 28 Hematology CBC w Diff NO MAN DIFF REQ NO MAN DIFF REQ WBC (4.8 - 10.8 /CUMM) 7.3 6.7 RBC (4.20 - 5.40 /CUMM) 2.87 L 3.12 L Hgb (12.0 - 16.0 G/DL) 8.1 L 8.8 L Hct (37 - 47 %) 24.5 L 26.8 L MCV (81.0 - 99.0 FL) 85.4 85.8 MCH (27.0 - 31.0 PG) 28.2 28.1 RDW (11.5 - 14.5 %) 15.3 H 15.0 H Plt Count (130 - 400 /CUMM) 156 174 MPV (7.4 - 10.4 FL) 10.8 H 11.7 H Gran % (42.2 - 75.2 %) 64.3 57.4 Lymphocytes % (20.5 - 51.1 %) 23.6 26.5 Monocytes % (1.7 - 9.3 %) 11.4 H 15.5 H Eosinophils % (0 - 5 %) 0.3 0.3 Basophils % (0.0 - 2.0 %) 0.4 0.3 Absolute Granulocytes (1.4 - 6.5 /CUMM) 4.7 3.9 Absolute Lymphocytes (1.2 - 3.4 /CUMM) 1.7 1.8 Absolute Monocytes (0.10 - 0.60 /CUMM) 0.8 H 1.0 H Absolute Eosinophils (0.0 - 0.7 /CUMM) 0 0 Absolute Basophils (0.0 - 0.2 /CUMM) 0 0 PUBS MCHC (33.0 - 37.0 G/DL) 33.0 32.8 L Imaging Results: SERVICE DATE: 04/01/16- EXAM TYPE: CAT - CT ABD & PELVIS ANGIOGRAM EXAMINATION: CT ANGIOGRAM ABDOMEN AND PELVIS CLINICAL INFORMATION: Black and tarry stools with clots. COMPARISON: 04/01/2016 TECHNIQUE: Multiple axial images were obtained through the abdomen and pelvis following the administration of 125 mL of Optiray 350 intravenous contrast. Images were reviewed on a dedicated 3-D workstation. DLP: 874 mGy-cm. FINDINGS: Vascular: 1. 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 There is poststenotic dilatation. 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 The remainder of the celiac axis is patent areas the superior mesenteric artery and inferior mesenteric artery are unremarkable with patent origins. 2. There are 2 right-sided renal arteries and 2 left-sided renal arteries. These are patent. 3. The infrarenal abdominal aorta is normal in course and caliber with mild atherosclerotic disease. 4. The common iliac arteries, internal and external iliac arteries, and common femoral arteries are widely patent. Nonvascular: Right basilar subsegmental atelectasis. The liver is normal in size, shape, and attenuation. The gallbladder is unremarkable. Heterogeneous attenuation of the spleen is likely secondary to the timing of contrast. The pancreas and adrenal glands are unremarkable. No hydronephrosis. There are prominent cysts throughout the left kidney. The largest is seen at the upper pole, measuring 6.2 cm. Within the right kidney, in addition to simple cysts, there is a heterogeneously enhancing mass at the midpole which measures 2.7 x 2.8 x 2.2 cm. The stomach and small bowel appear unremarkable. No obstruction. There is pancolonic diverticulosis. There is wall thickening involving the sigmoid colon, as seen on the recent prior CT. There is adjacent inflammatory change, consistent with diverticulitis. There is a peripherally enhancing region along the superior wall of the sigmoid colon which measures 2.1 x 2.8 x 2.1 cm, which could represent a prominent diverticulum or a peridiverticular abscess. No free air. The bladder is unremarkable. The uterus is not seen. No adnexal mass. No lymphadenopathy. Diffuse atherosclerotic calcifications. Diffuse degenerative changes throughout the spine. Degenerative changes of the hips. IMPRESSION: 1. No significant vascular abnormality. 2. Sigmoid diverticulitis. Suspect small peridiverticular abscess. 3. Enhancing right mid to upper pole renal mass. This is suspicious for neoplasm. This critical result was discussed with Dr. Taylor by telephone at 04/01/2016 4:52 PM and it was ascertained that the content and urgency of the report was understood at the time of direct communication. 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 MARK BROWN,VIV [place] 04/02/16 0850: Exam & Diagnostic Data Vital Signs and I&O Vital Signs Date Time Temp Pulse Resp B/P Pulse O2 O2 Flow FiO2 Ox Delivery Rate 04/02 0651 98.5 65 20 118/58 96 Room Air 04/01 2243 97 Nasal 2.0L Cannula 04/01 2204 98.8 73 20 132/70 91 Room Air 04/01 1517 98.7 70 20 160/70 97 04/01 1413 Nasal 2.0L Cannula 04/01 1037 98.0 74 18 133/60 98 Room Air Intake & Output 04/02 1600 04/02 0800 04/02 0000 04/01 1600 04/01 0800 04/01 0000 Intake Total 780 880 75 0 Output Total 150 Balance 780 880 -75 0 Intake, IV 300 400 75 Intake, Oral 480 480 0 0 Number 1 3 Bowel Movements Output, Urine 150 Patient 159 lb 140 lb Weight Assessment/Plan Consult Acknowledgment - Thank you for your consult request. Attending MD Review Statement Attending Statement Attending MD Statement: discuss w/resident/PA/GL ACCOUNTANT, reviewed images Attending Assessment/Plan: Patient with mild discomfort. CT scans reviewed. The first CT shows signs of chronic sigmoid diverticular disease without significant acute inflammatory component. The second CT with contrast shows more signs of inflammation and possibly an intramural abcess. No intervention should be carried out for this finding. In the absence of leukocytosis, shift or focal peritonitis, it can be safely observed. Defer bleeding management/workup to GI.
[2016-04-01 22:04] VITALS: BP 132/70
[2016-04-02 06:51] VITALS: BP 118/58
[2016-04-02 08:24] LABS: ABSOLUTE BASOPHIL COUNT 0 /CUMM (0.0-0.2); ABSOLUTE EOSINOPHIL COUNT 0 /CUMM (0.0-0.7); ABSOLUTE GRANULOCYTE CT 5.3 /CUMM (1.4-6.5); ABSOLUTE LYMPH COUNT 2.1 /CUMM (1.2-3.4); ABSOLUTE MONOCYTE COUNT 0.8 /CUMM (0.10-0.60); BASOPHIL % 0.4 % (0.0-2.0); EOSINOPHIL % 0.4 % (0-5); GRANULOCYTE % 63.9 % (42.2-75.2); HEMATOCRIT 23.2 % (37-47); MEAN CORPUSCULAR HGB 28.5 PG (27.0-31.0); MEAN CORPUSCULAR HGB CONC 33.5 G/DL (33.0-37.0); MEAN CORPUSCULAR VOLUME 84.9 FL (81.0-99.0); MEAN PLATELET VOLUME 11.1 FL (7.4-10.4); PLATELET COUNT 156 /CUMM (130-400); RBC DISTRIBUTION WIDTH 15.1 % (11.5-14.5); RED BLOOD CELL CT 2.73 /CUMM (4.20-5.40); WHITE BLOOD CELL COUNT 8.3 /CUMM (4.8-10.8)
--- NOTE | 2016-04-02 09:42 | PN- Housestaff ---
RAYMOND BROWN,GIL 04/02/16 0942: Subjective Follow-up For: Bright red blood per rectum Subjective: Patient seen and examined. She has seen sitting upright in her bed resting comfortably. She appears to be in no acute distress. At her bedside is a patient safety monitor whom offers no collateral information in regards to patient's current clinical condition. Patient does not recall why she came into the hospital and is only oriented to person and place. She denies any obvious complaints and otherwise states that she feels well. Additionally she denies any headache, fever, chills, chest pain, palpitations, shortness of breath, cough, nausea, vomiting, diarrhea, further episodes of bright red blood per rectum. No overnight events reported. Review of Systems Constitutional: Reports: see HPI. Objective Last 24 Hrs of Vital Signs/I&O Vital Signs Date Time Temp Pulse Resp B/P Pulse O2 O2 Flow FiO2 Ox Delivery Rate 04/02 0900 66 116/78 04/02 0900 66 116/78 04/02 0651 98.5 65 20 118/58 96 Room Air 04/01 2243 97 Nasal 2.0L Cannula 04/01 2204 98.8 73 20 132/70 91 Room Air 04/01 1517 98.7 70 20 160/70 97 04/01 1413 Nasal 2.0L Cannula Intake & Output 04/02 1600 04/02 0800 04/02 0000 Intake Total 780 880 Output Total Balance 780 880 Intake, IV 300 400 Intake, Oral 480 480 Number 1 1 Bowel Movements Physical Exam General Appearance: Alert, Cooperative, No Acute Distress Other Physical Findings: General - well developed, well nourished elderly woman in no acute distress HEENT - NCAT, PERRL, EOMI, anicteric sclera, moist mucous membranes Cardio -systolic murmur Resp - CTA bilaterally w/o wheezing/rhochi/crackles GI - soft, nontender, nondistended, bowel sounds present Neuro - Awake and alert, CN II - XII grossly intact Extremities - no edema, pulses intact Current Medications: Current Medications Sig/Ines Start time Last Medication Dose Route Stop Time Status Admin Acetaminophen 650 MG Q6-PRN PRN 04/01 1430 AC PO Ampicillin Sodium/ 3,000 MG Q6H 04/01 2200 AC 04 Sulbactam Sodium IV 0900 Sodium Chloride 100 ML Ampicillin Sodium/ 3,000 MG Q6 04/01 1300 DC 04/01 Sulbactam Sodium IV 1605 Sodium Chloride 100 ML Atorvastatin Calcium 20 MG 1700 04/01 1700 AC 04/01 PO 1604 Dextrose/Sodium 1,000 ML .[id number] 04/01 1215 DC 04/01 Chloride IV 04/02 0134 1605 Ferrous Sulfate 325 MG DAILY 04/02 1000 AC 04/02 PO 0900 Losartan Potassium 50 MG DAILY 04/01 1750 AC 04/02 PO 0900 Losartan Potassium 20 MG DAILY 04/01 1642 DC PO Melatonin 5 MG ONCE ONE 04/01 2145 DC 04/01 PO 04/01 2146 2153 Memantine 10 MG Q12 04/01 2200 AC 04/02 PO 0900 Metoprolol Tartrate 12.5 MG Q12 04/01 2200 AC 04/02 PO 0900 Morphine Sulfate 2 MG Q6P PRN 04/01 1430 AC 04/01 IV 1448 Multivitamins 1 TAB DAILY 04/02 1000 AC 04/02 Therapeutic PO 0900 Omeprazole 40 MG DAILY AC 04/02 0700 AC 04/02 PO 0318 Patient Medication 1 UNIT ONE NR 04/01 1800 MA Teaching ED 04/01 1830 Patient Medication 1 ED ONE ONE 04/01 1415 DC 04/02 Teaching ED 04/01 1416 0900 Potassium Chloride 20 MEQ ONCE ONE 04/02 1115 DC PO 04/02 1116 Potassium Chloride 20 MEQ ONCE ONE 04/02 0945 DC PO 04/02 0946 Potassium Chloride 10 MEQ Q1H 04/02 0945 DC IV 04/02 1046 Potassium Chloride 40 MEQ ONCE ONE 04/01 1300 DC 04/01 PO 04/01 1301 1604 Sodium Chloride 1,000 ML ONCE ONE 04/01 0745 DC 04/01 IV 04/01 1424 0811 Trazodone HCl 25 MG AT BEDTIME 04/01 2200 AC 04/01 PO 2034 Vitamin E 400 IU DAILY 04/02 1000 AC 04/02 PO 0900 Last 24 Hrs of Lab/Prakash Results Last 24 Hrs of Labs/Mics: Laboratory Tests 04/02/16 0638: CBC w Diff NO MAN DIFF REQ, RBC 2.73 L, MCV 84.9, MCH 28.5, RDW 15.1 H, MPV 11.1 H, Gran % 63.9, Lymphocytes % 25.9, Monocytes % 9.4 H, Eosinophils % 0.4, Basophils % 0.4, Absolute Granulocytes 5.3, Absolute Lymphocytes 2.1, Absolute Monocytes 0.8 H, Absolute Eosinophils 0, Absolute Basophils 0, PUBS MCHC 33.5 04/01/16 1701: CBC w Diff NO MAN DIFF REQ, RBC 2.87 L, MCV 85.4, MCH 28.2, RDW 15.3 H, MPV 10.8 H, Gran % 64.3, Lymphocytes % 23.6, Monocytes % 11.4 H, Eosinophils % 0.3 , Basophils % 0.4, Absolute Granulocytes 4.7, Absolute Lymphocytes 1.7, Absolute Monocytes 0.8 H, Absolute Eosinophils 0, Absolute Basophils 0, PUBS MCHC 33.0 Assessment/Plan Assessment: Patient admitted overnight in place with patient safety monitor for agitation and unsafe ambulation. Lab values and she rated hypokalemia to 3.0, which was repleted. Hemoglobin was minimally lower than previously checked 12 hours prior. She has no obvious bright red blood per rectum, however stool guaiac was positive with loose dark stool. CTA abdomen/pelvis demonstrated sigmoid diverticulitis and was suspicious for a small peridiverticular abscess. The study also commented on an enhancing right mid/upper pole renal mass suspicious for neoplasm. Consent for blood transfusion was obtained and placed in chart. Type and cross was ordered and patient was transfused 1 unit of packed red blood cells. Problem list: -Bright red blood per rectum, most likely diverticular bleed -Hypokalemia -Altered mental status -History of dementia Plan: -Monitor vital signs for hemodynamic instability -Monitor hemoglobin/hematocrit -Follow up Gen. surgery/gastroenterology recommendations -Called GI stat for active bleeding -Continue Unasyn -Obtain CT abdomen/pelvis in 48 hours (04/04/16) and of abscess -Outpatient follow-up for renal mass -Advance diet as tolerated per GI -Restart baby aspirin if okay with cardio Problem List: 1. GI bleed Pain Ratin Pain Location: None Pain Goal: Remain pain free Pain Plan: As noted in plan Tomorrow's Labs & Rationales: Complete blood count-acute blood loss anemia BASIC metabolic panel-hypokalemia Consulting Request: Consulting Specialty: Gastroenterology HIRA FRASER MD 04/02/16 2405: Attending MD Review Statement Attending Statement Attending MD Statement: examined this patient, discuss w/resident/PA/COMPLIANCE PARALEGAL, agreed w/resident/PA/COMPLIANCE PARALEGAL, discussed with family, reviewed EMR data (avail), discussed with nursing, reviewed images, amended to note Attending Assessment/Plan: Mrs. Moore is without complaints today. She is clinically stable. Consultations have been reviewed and actions recommended by them have been implemented. Her hematocrit today is below 25 and I think it is prudent that we transfuse her. Her electrolyte abnormalities have been addressed and we will continue to monitor and correct those that need it. The mass within her right kidney will be addressed once current problems are resolved.
--- NOTE | 2016-04-02 11:06 | PN- Gastroenterology ---
Assessment/Plan Assessment/Recommendations: Assessment: Ms. Nolasco is in 89-year-old female multiple medical problems who has been noted to have bright red blood per rectum over the past 2 days without any significant abdominal pain of uncertain etiology. Her hgb has been stable since admisson and she hasn't had any rectal bleeding since admission and she has been hemodynamically stable so it appears as though she is not actively bleeding and colonoscopic intervention is unlikely to be necessary. The ct scan did show diverticulitis and a possible diverticular abscess which could account for her symptoms albeit it is unusual for diverticulitis to bleed. Regardless, as she is clinically doing well and has a benign abdominal exam I feel it is reasonable to advance her diet. A repeat ct scan should be done in 24-48 hours to ensure resolution of the abscess and see if requires drainage. 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 Recognitions: 1. Advance diet as tolerated 2. Follow daily CBC and transfuse as needed to keep hgb > 7 or as per cardiololgy recommendations. 3. Ok to restart baby asa if indicated for cardiac prophylaxis 4. Continue IV unasyn and repeat a ct scan in 48 hours to ensure resolution of the potential abscess. I will continue to follow this patient and make further recommendations based on her clinical course and results of repeat blood work and imaging. Problem List: 1. GI bleed 2. Dementia Subjective Subjective: Pt is without any GI complaints. She is tolerating liquids. She denies any abdominal pain and she has not had any further rectal bleeding since admission. She had a ct angiogram yesterday which was negative for any exrtavasation of blood, but did show diverticulitis with a possible abscess (and a possible renal cell cancer) and she has since been started on antibiotics. Objective Vital Signs and I&Os Vital Signs Date Time Temp Pulse Resp B/P Pulse O2 O2 Flow FiO2 Ox Delivery Rate 04/02 0900 66 116/78 04/02 0900 66 116/78 04/02 0651 98.5 65 20 118/58 96 Room Air 04/01 2243 97 Nasal 2.0L Cannula 02/03 2204 98.8 73 20 132/70 91 Room Air / 1517 98.7 70 20 160/70 97 / 1413 Nasal 2.0L Cannula Intake & Output 04/02 1600 04/02 0400 04/01 1600 04/01 0400 03/31 1600 03/31 0400 Intake Total 780 880 75 Output Total 150 Balance 780 880 -75 Intake, IV 300 400 75 Intake, Oral 480 480 0 Number 2 3 Bowel Movements Output, Urine 150 Patient 159 lb Weight Physical Exam General Appearance: well developed/nourished, no apparent distress, alert, comfortable Head: atraumatic, normal appearance Ears, Nose, Throat: normal pharynx, normal ENT inspection Neck: normal inspection, supple, full range of motion Respiratory: normal breath sounds, chest non-tender Cardiovascular: regular rate/rhythm Abdomen: normal bowel sounds, soft, non-tender Skin: intact, normal color Current Medications: Current Medications Sig/Ines Start time Last Medication Dose Route Stop Time Status Admin Acetaminophen 650 MG Q6-PRN PRN 04/01 1430 AC PO Ampicillin Sodium/ 3,000 MG Q6H 04/01 2200 AC 04/02 Sulbactam Sodium IV 0900 Sodium Chloride 100 ML Ampicillin Sodium/ 3,000 MG Q6 / 1300 DC 04/01 Sulbactam Sodium IV 1605 Sodium Chloride 100 ML Atorvastatin Calcium 20 MG 1700 04/01 1700 AC 04/01 PO 1604 Dextrose/Sodium 1,000 ML .[id number] 04/01 1215 DC 04/01 Chloride IV 04/02 0134 1605 Ferrous Sulfate 325 MG DAILY 04/02 1000 AC 04/02 PO 0900 Losartan Potassium 50 MG DAILY 04/01 1750 AC 04/02 PO 0900 Losartan Potassium 20 MG DAILY 04/01 1642 DC PO Melatonin 5 MG ONCE ONE 04/01 2145 DC 04/01 PO 04/01 2146 2153 Memantine 10 MG Q12 04/01 2200 AC 04/02 PO 0900 Metoprolol Tartrate 12.5 MG Q12 04/01 2200 AC 04/02 PO 0900 Morphine Sulfate 2 MG Q6P PRN 04/01 1430 AC 02 IV 1448 Multivitamins 1 TAB DAILY 04/02 1000 AC 04/02 Therapeutic PO 0900 Omeprazole 40 MG DAILY AC 04/02 0700 AC 04/02 PO 0318 Patient Medication 1 UNIT ONE NR 02/03 1800 DC Teaching ED 04/01 1830 Patient Medication 1 ED ONE ONE 04/01 1415 DC 04/02 [facility] ED 04/01 1416 0900 Potassium Chloride 20 MEQ ONCE ONE 04/02 0945 DC PO 04/02 0946 Potassium Chloride 10 MEQ Q1H 04/02 0945 DC IV 04/02 1046 Potassium Chloride 40 MEQ ONCE ONE 04/01 1300 DC 04/01 PO 04/01 1301 1604 Sodium Chloride 1,000 ML ONCE ONE 04/01 0745 DC 04/01 IV 04/01 1424 0811 Trazodone HCl 25 MG AT BEDTIME 04/01 2200 AC 04/01 PO 2034 Vitamin E 400 IU DAILY 04/02 1000 AC 04/02 PO 0900 Results Pertinent Lab Results: Laboratory Tests 04/02 04/01 0638 1701 Hematology CBC w Diff NO MAN DIFF REQ NO MAN DIFF REQ WBC (4.8 - 10.8 /CUMM) 8.3 7.3 RBC (4.20 - 5.40 /CUMM) 2.73 L 2.87 L Hgb (12.0 - 16.0 G/DL) 7.8 L 8.1 L Hct (37 - 47 %) 23.2 L 24.5 L MCV (81.0 - 99.0 FL) 84.9 85.4 MCH (27.0 - 31.0 PG) 28.5 28.2 RDW (11.5 - 14.5 %) 15.1 H 15.3 H Plt Count (130 - 400 /CUMM) 156 156 MPV (7.4 - 10.4 FL) 11.1 H 10.8 H Gran % (42.2 - 75.2 %) 63.9 64.3 Lymphocytes % (20.5 - 51.1 %) 25.9 23.6 Monocytes % (1.7 - 9.3 %) 9.4 H 11.4 H Eosinophils % (0 - 5 %) 0.4 0.3 Basophils % (0.0 - 2.0 %) 0.4 0.4 Absolute Granulocytes (1.4 - 6.5 /CUMM) 5.3 4.7 Absolute Lymphocytes (1.2 - 3.4 /CUMM) 2.1 1.7 Absolute Monocytes (0.10 - 0.60 /CUMM) 0.8 H 0.8 H Absolute Eosinophils (0.0 - 0.7 /CUMM) 0 0 Absolute Basophils (0.0 - 0.2 /CUMM) 0 0 PUBS MCHC (33.0 - 37.0 G/DL) 33.5 33.0 02/03 0726 Chemistry Sodium (137 - 145 mmol/L) 137 Potassium (3.5 - 5.1 mmol/L) 3.0 L Chloride (98 - 107 mmol/L) 101 Carbon Dioxide (22 - 30 mmol/L) 33 H Anion Gap (5 - 16) 4 L BUN (7 - 17 mg/dL) 15 Creatinine (0.5 - 1.0 mg/dL) 0.6 Estimated GFR (>60 ml/min) > 60 BUN/Creatinine Ratio (7 - 25 %) 25.0 Glucose (65 - 99 mg/dL) 98 Lactic Acid (0.7 - 2.1 mmol/L) 1.0 Calcium (8.4 - 10.2 mg/dL) 8.3 L Magnesium (1.6 - 2.3 mg/dL) 1.8 Total Bilirubin (0.2 - 1.3 mg/dL) 0.7 AST (14 - 36 U/L) 17 ALT (9 - 52 U/L) 27 Alkaline Phosphatase (<127 U/L) 101 Troponin I (< 0.11 ng/ml) < 0.01 Total Protein (6.3 - 8.2 g/dL) 6.1 L Albumin (3.5 - 5.0 g/dL) 3.0 L Globulin (1.9 - 4.2 gm/dL) 3.1 Albumin/Globulin Ratio (1.1 - 2.2 %) 1.0 L Coagulation PT (9.4 - 12.5 SEC) 13.4 H INR (0.90 - 1.19) 1.28 H APTT (25 - 37 SEC) 28 Hematology CBC w Diff NO MAN DIFF REQ WBC (4.8 - 10.8 /CUMM) 6.7 RBC (4.20 - 5.40 /CUMM) 3.12 L Hgb (12.0 - 16.0 G/DL) 8.8 L Hct (37 - 47 %) 26.8 L MCV (81.0 - 99.0 FL) 85.8 MCH (27.0 - 31.0 PG) 28.1 RDW (11.5 - 14.5 %) 15.0 H Plt Count (130 - 400 /CUMM) 174 MPV (7.4 - 10.4 FL) 11.7 H Gran % (42.2 - 75.2 %) 57.4 Lymphocytes % (20.5 - 51.1 %) 26.5 Monocytes % (1.7 - 9.3 %) 15.5 H Eosinophils % (0 - 5 %) 0.3 Basophils % (0.0 - 2.0 %) 0.3 Absolute Granulocytes (1.4 - 6.5 /CUMM) 3.9 Absolute Lymphocytes (1.2 - 3.4 /CUMM) 1.8 Absolute Monocytes (0.10 - 0.60 /CUMM) 1.0 H Absolute Eosinophils (0.0 - 0.7 /CUMM) 0 Absolute Basophils (0.0 - 0.2 /CUMM) 0 PUBS MCHC (33.0 - 37.0 G/DL) 32.8 L Imaging/Other Studies: ct angiogram: FINDINGS: Vascular: 1. 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 There is poststenotic dilatation. 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 The remainder of the celiac axis is patent areas the superior mesenteric artery and inferior mesenteric artery are unremarkable with patent origins. 2. There are 2 right-sided renal arteries and 2 left-sided renal arteries. These are patent. 3. The infrarenal abdominal aorta is normal in course and caliber with mild atherosclerotic disease. 4. The common iliac arteries, internal and external iliac arteries, and common femoral arteries are widely patent. Nonvascular: Right basilar subsegmental atelectasis. The liver is normal in size, shape, and attenuation. The gallbladder is unremarkable. Heterogeneous attenuation of the spleen is likely secondary to the timing of contrast. The pancreas and adrenal glands are unremarkable. No hydronephrosis. There are prominent cysts throughout the left kidney. The largest is seen at the upper pole, measuring 6.2 cm. Within the right kidney, in addition to simple cysts, there is a heterogeneously enhancing mass at the midpole which measures 2.7 x 2.8 x 2.2 cm. The stomach and small bowel appear unremarkable. No obstruction. There is pancolonic diverticulosis. There is wall thickening involving the sigmoid colon, as seen on the recent prior CT. There is adjacent inflammatory change, consistent with diverticulitis. There is a peripherally enhancing region along the superior wall of the sigmoid colon which measures 2.1 x 2.8 x 2.1 cm, which could represent a prominent diverticulum or a peridiverticular abscess. No free air. The bladder is unremarkable. The uterus is not seen. No adnexal mass. No lymphadenopathy. Diffuse atherosclerotic calcifications. Diffuse degenerative changes throughout the spine. Degenerative changes of the hips. IMPRESSION: 1. No significant vascular abnormality. 2. Sigmoid diverticulitis. Suspect small peridiverticular abscess. 3. Enhancing right mid to upper pole renal mass. This is suspicious for neoplasm.
--- NOTE | 2016-04-02 13:35 | PN- General Surgery ---
Subjective Subjective: feels better. but she doesn't recall what bothered her yesterday. daughter reports diarrhea today. patient denies pain. Objective Vital Signs and I&Os Vital Signs Date Time Temp Pulse Resp B/P Pulse O2 O2 Flow FiO2 Ox Delivery Rate 04/02 0900 66 116/78 04/02 0900 66 116/78 04/02 0651 98.5 65 20 118/58 96 Room Air 04/01 2243 97 Nasal 2.0L Cannula 04/01 2203 98.8 73 20 132/70 91 Room Air 04/01 1517 98.7 70 20 160/70 97 04/01 1413 Nasal 2.0L Cannula Intake & Output 04/02 1600 04/02 0800 04/02 0000 04/01 1600 04/01 0800 04/01 0000 Intake Total 780 880 75 0 Output Total 150 Balance 780 880 -75 0 Intake, IV 300 400 75 Intake, Oral 480 480 0 0 Number 1 1 3 Bowel Movements Output, Urine 150 Patient 159 lb 140 lb Weight Physical Exam: gen: looks comfortable. nad. normal habitus heent: anicteric, mmm, eomi chest ; nt, normal effort and excursion. abd; soft, nt, nt, no mass. Current Medications: Current Medications Sig/Ines Start time Last Medication Dose Route Stop Time Status Admin Acetaminophen 650 MG Q6-PRN PRN / 1430 AC PO Ampicillin Sodium/ 3,000 MG Q6H / 2200 AC / Sulbactam Sodium IV 0900 Sodium Chloride 100 ML Ampicillin Sodium/ 3,000 MG Q6 / 1300 DC 02 Sulbactam Sodium IV 1605 Sodium Chloride 100 ML Atorvastatin Calcium 20 MG 1700 02/03 1700 AC 02/ PO 1604 Dextrose/Sodium 1,000 ML .[id number] / 1215 DC 02/ Chloride IV / 0134 1605 Ferrous Sulfate 325 MG DAILY /04 1000 AC 02/ PO 0900 Losartan Potassium 50 MG DAILY / 1750 AC 02/ PO 0900 Losartan Potassium 20 MG DAILY / 1642 DC PO Magnesium Oxide 400 MG ONE ONE 04/02 1130 DC 02/ PO 04/02 1131 1258 Melatonin 5 MG ONCE ONE 04/015 DC 04/01 PO 04/01 214 2153 Memantine 10 MG Q12 04/01 2200 AC 04/02 PO 0900 Metoprolol Tartrate 12.5 MG Q12 04/01 2200 AC 04/02 PO 0900 Morphine Sulfate 2 MG Q6P PRN 04/01 1430 AC 04/01 IV 1448 Multivitamins 1 TAB DAILY 04/02 1000 AC 04/02 Therapeutic PO 0900 Omeprazole 40 MG DAILY AC 04/02 0700 AC 04/02 PO 0318 Patient Medication 1 UNIT ONE NR 04/01 1800 DC Teaching ED 04/01 1830 Patient Medication 1 ED ONE ONE 04/01 1415 DC 04/02 [facility] ED 04/01 1416 0900 Potassium Chloride 20 MEQ ONCE ONE 04/02 1115 DC 04/02 PO 04/02 1116 1258 Potassium Chloride 20 MEQ ONCE ONE 04/02 0945 DC 04/02 PO 04/02 0946 1258 Potassium Chloride 10 MEQ Q1H 04/02 0945 DC IV 04/02 1046 Sodium Chloride 1,000 ML ONCE ONE 04/01 0745 DC 04/01 IV 04/01 1424 0811 Trazodone HCl 25 MG AT BEDTIME 04/01 2199 AC 04/01 PO 2034 Vitamin E 400 IU DAILY 04/02 1000 AC 04/02 PO 0900 Results Last 48 Hours of Labs: Laboratory Tests 04/02 04/01 0638 1701 Hematology CBC w Diff NO MAN DIFF REQ NO MAN DIFF REQ WBC (4.8 - 10.8 /CUMM) 8.3 7.3 RBC (4.20 - 5.40 /CUMM) 2.73 L 2.87 L Hgb (12.0 - 16.0 G/DL) 7.8 L 8.1 L Hct (37 - 47 %) 23.2 L 24.5 L MCV (81.0 - 99.0 FL) 84.9 85.4 MCH (27.0 - 31.0 PG) 28.5 28.2 RDW (11.5 - 14.5 %) 15.1 H 15.3 H Plt Count (130 - 400 /CUMM) 156 156 MPV (7.4 - 10.4 FL) 11.1 H 10.8 H Gran % (42.2 - 75.2 %) 63.9 64.3 Lymphocytes % (20.5 - 51.1 %) 25.9 23.6 Monocytes % (1.7 - 9.3 %) 9.4 H 11.4 H Eosinophils % (0 - 5 %) 0.4 0.3 Basophils % (0.0 - 2.0 %) 0.4 0.4 Absolute Granulocytes (1.4 - 6.5 /CUMM) 5.3 4.7 Absolute Lymphocytes (1.2 - 3.4 /CUMM) 2.1 1.7 Absolute Monocytes (0.10 - 0.60 /CUMM) 0.8 H 0.8 H Absolute Eosinophils (0.0 - 0.7 /CUMM) 0 0 Absolute Basophils (0.0 - 0.2 /CUMM) 0 0 PUBS MCHC (33.0 - 37.0 G/DL) 33.5 33.0 02/03 0726 Chemistry Sodium (137 - 145 mmol/L) 137 Potassium (3.5 - 5.1 mmol/L) 3.0 L Chloride (98 - 107 mmol/L) 101 Carbon Dioxide (22 - 30 mmol/L) 33 H Anion Gap (5 - 16) 4 L BUN (7 - 17 mg/dL) 15 Creatinine (0.5 - 1.0 mg/dL) 0.6 Estimated GFR (>60 ml/min) > 60 BUN/Creatinine Ratio (7 - 25 %) 25.0 Glucose (65 - 99 mg/dL) 98 Lactic Acid (0.7 - 2.1 mmol/L) 1.0 Calcium (8.4 - 10.2 mg/dL) 8.3 L Magnesium (1.6 - 2.3 mg/dL) 1.8 Total Bilirubin (0.2 - 1.3 mg/dL) 0.7 AST (14 - 36 U/L) 17 ALT (9 - 52 U/L) 27 Alkaline Phosphatase (<127 U/L) 101 Troponin I (< 0.11 ng/ml) < 0.01 Total Protein (6.3 - 8.2 g/dL) 6.1 L Albumin (3.5 - 5.0 g/dL) 3.0 L Globulin (1.9 - 4.2 gm/dL) 3.1 Albumin/Globulin Ratio (1.1 - 2.2 %) 1.0 L Coagulation PT (9.4 - 12.5 SEC) 13.4 H INR (0.90 - 1.19) 1.28 H APTT (25 - 37 SEC) 28 Hematology CBC w Diff NO MAN DIFF REQ WBC (4.8 - 10.8 /CUMM) 6.7 RBC (4.20 - 5.40 /CUMM) 3.12 L Hgb (12.0 - 16.0 G/DL) 8.8 L Hct (37 - 47 %) 26.8 L MCV (81.0 - 99.0 FL) 85.8 MCH (27.0 - 31.0 PG) 28.1 RDW (11.5 - 14.5 %) 15.0 H Plt Count (130 - 400 /CUMM) 174 MPV (7.4 - 10.4 FL) 11.7 H Gran % (42.2 - 75.2 %) 57.4 Lymphocytes % (20.5 - 51.1 %) 26.5 Monocytes % (1.7 - 9.3 %) 15.5 H Eosinophils % (0 - 5 %) 0.3 Basophils % (0.0 - 2.0 %) 0.3 Absolute Granulocytes (1.4 - 6.5 /CUMM) 3.9 Absolute Lymphocytes (1.2 - 3.4 /CUMM) 1.8 Absolute Monocytes (0.10 - 0.60 /CUMM) 1.0 H Absolute Eosinophils (0.0 - 0.7 /CUMM) 0 Absolute Basophils (0.0 - 0.2 /CUMM) 0 PUBS MCHC (33.0 - 37.0 G/DL) 32.8 L Assessment/Plan Assessment/Plan blood per rectum with slow trend over admission. persistent 'diarrhea' unclear if related to diverticulitis. tiny intramural fluid on CT. I'm not convinced it represents an abscess given her lack of abdominal pain, lack of leukocytosis or left shift. Defer further w/u and treatment to GI.
[2016-04-02 14:09] VITALS: BP 130/90
[2016-04-02 22:47] VITALS: BP 138/70
[2016-04-03 06:59] VITALS: BP 140/70
--- NOTE | 2016-04-03 08:41 | PN- Housestaff ---
Subjective Follow-up For: Bright red blood per rectum Subjective: Patient seen and examined. She is seen sitting upright in her bed resting comfortably. She appears to be in no acute distress. At her bedside in her daughter whom is up to date about her clinical condition and has no further questions. Patient denies any complaints, or any pain, but it is unclear if she understand questions asked. Review of systems is unobtainable. No overnight events reported. Review of Systems Constitutional: Reports: see HPI. Objective Last 24 Hrs of Vital Signs/I&O Vital Signs Date Time Temp Pulse Resp B/P Pulse O2 O2 Flow FiO2 Ox Delivery Rate 04/03 1429 98.2 60 20 162/90 94 Room Air 04/03 0906 66 140/62 04/03 0906 66 140/62 04/03 0659 97.9 72 20 140/70 92 Room Air 04/02 2247 98.4 74 20 138/70 91 Room Air 04/02 2209 160/72 Intake & Output 04/03 1600 04/03 0800 02 0000 Intake Total 600 240 410 Output Total 450 300 450 Balance 150 -60 -40 Intake, Blood 350 Product Intake, IV 120 100 Intake, Oral 480 140 60 Number 6 2 Bowel Movements Output, Urine 450 300 450 Physical Exam General Appearance: Alert, Cooperative, No Acute Distress Other Physical Findings: General - well developed, well nourished elderly woman in no acute distress HEENT - NCAT, PERRL, EOMI, anicteric sclera, moist mucous membranes Cardio -systolic murmur Resp - CTA bilaterally w/o wheezing/rhochi/crackles GI - soft, nontender, nondistended, bowel sounds present Neuro - Awake and alert, not oriented to place or time, CN II - XII grossly intact Extremities - no edema, pulses intact Current Medications: Current Medications Sig/Ines Start time Last Medication Dose Route Stop Time Status Admin Acetaminophen 650 MG Q6-PRN PRN 04/01 1430 AC PO Ampicillin Sodium/ 3,000 MG Q6H 04/01 2200 AC 02/ Sulbactam Sodium IV 1627 Sodium Chloride 100 ML Atorvastatin Calcium 20 MG 1700 02/03 1700 AC 02/ PO 1627 Ferrous Sulfate 325 MG DAILY / 1000 AC / PO 0906 Losartan Potassium 50 MG DAILY 04/01 1750 AC / PO 0906 Memantine 10 MG Q12 04/01 2200 AC 04/03 PO 09 Metoprolol Tartrate 12.5 MG Q12 04/01 2200 AC 04/03 PO 0906 Morphine Sulfate 2 MG Q6P PRN 04/01 1430 AC 04/01 IV 1448 Multivitamins 1 TAB DAILY 04/02 1000 AC 04/03 Therapeutic PO 0907 Olanzapine 2.5 MG ONCE ONE 04/03 0045 DC IM 04/03 0046 Olanzapine 5 MG .STK-MED ONE 04/03 0040 DC PO 04/03 0041 Omeprazole 40 MG DAILY AC 04/02 0700 AC 04/03 PO 0608 Potassium Chloride 40 MEQ ONCE ONE 04/03 1030 DC 04/03 PO 04/03 1031 1338 Trazodone HCl 25 MG AT BEDTIME 04/01 2199 AC 04/02 PO 220 Vitamin E 400 IU DAILY 04/02 1000 AC 04/03 PO 09 Last 24 Hrs of Lab/Prakash Results Last 24 Hrs of Labs/Mics: Laboratory Tests 04/03/16 0700: Anion Gap 6, Estimated GFR > 60, BUN/Creatinine Ratio 16.0, CBC w Diff NO MAN DIFF REQ, RBC 3.16 L, MCV 86.6, MCH 28.3, RDW 14.6 H, MPV 11.4 H, Gran % 62.9 , Lymphocytes % 26.1, Monocytes % 9.5 H, Eosinophils % 1.0, Basophils % 0.5, Absolute Granulocytes 5.6, Absolute Lymphocytes 2.3, Absolute Monocytes 0.8 H, Absolute Eosinophils 0.1, Absolute Basophils 0, PUBS MCHC 32.7 L Assessment/Plan Assessment: Patient remains confused with persistent of minor episode of bright red blood per rectum according to nursing staff. She received one unit of packed red blood cells yesterday for which her hemoglobin responded appropriately. Patients family is concerned about the CT scan finding suggestive of malignancy. She is to be maintained on IV unasyn and have a repeat CT scan of the abdomen tomorrow to assess for resolution of the bleed/abscess. Problem list: -Bright red blood per rectum, most likely diverticular bleed -Hypokalemia -Altered mental status -History of dementia Plan: -Monitor vital signs for hemodynamic instability -Monitor hemoglobin/hematocrit -PRBC transfused: 1 -Follow up Gen. surgery/gastroenterology recommendations -Call GI stat for active bleeding -Continue Unasyn -Obtain CT abdomen/pelvis in 48 hours (04/04/16) to assess for resolution of abscess -Outpatient follow-up for renal mass -Advance diet as tolerated per GI -Restart baby aspirin if okay with cardio -Daily CBC Problem List: 1. GI bleed Pain Ratin Pain Location: None Pain Goal: Remain pain free Pain Plan: As noted in plan Tomorrow's Labs & Rationales: CBC - acute blood loss anemia BEP - hypokalemia Consulting Request: Consulting Specialty: Gastroenterology
[2016-04-03 08:51] LABS: ABSOLUTE BASOPHIL COUNT 0 /CUMM (0.0-0.2); ABSOLUTE EOSINOPHIL COUNT 0.1 /CUMM (0.0-0.7); ABSOLUTE GRANULOCYTE CT 5.6 /CUMM (1.4-6.5); ABSOLUTE LYMPH COUNT 2.3 /CUMM (1.2-3.4); ABSOLUTE MONOCYTE COUNT 0.8 /CUMM (0.10-0.60); BASOPHIL % 0.5 % (0.0-2.0); GRANULOCYTE % 62.9 % (42.2-75.2); HEMATOCRIT 27.4 % (37-47); MEAN CORPUSCULAR HGB 28.3 PG (27.0-31.0); MEAN CORPUSCULAR HGB CONC 32.7 G/DL (33.0-37.0); MEAN CORPUSCULAR VOLUME 86.6 FL (81.0-99.0); MEAN PLATELET VOLUME 11.4 FL (7.4-10.4); PLATELET COUNT 172 /CUMM (130-400); RBC DISTRIBUTION WIDTH 14.6 % (11.5-14.5); RED BLOOD CELL CT 3.16 /CUMM (4.20-5.40); WHITE BLOOD CELL COUNT 8.9 /CUMM (4.8-10.8)
--- NOTE | 2016-04-03 12:57 | PN- General Surgery ---
Subjective Subjective: no complaints. bowel movements. no pain. apparently blood per rectum overnight. transfused 1uprbc. Objective Vital Signs and I&Os Vital Signs Date Time Temp Pulse Resp B/P Pulse O2 O2 Flow FiO2 Ox Delivery Rate 04/03 905 66 140/62 04/03 905 66 140/62 04/03 0659 97.9 72 20 140/70 92 Room Air 04/02 2247 98.4 74 20 138/70 91 Room Air 04/02 2209 160/72 04/02 1409 98.7 78 20 130/90 93 Room Air Intake & Output 04/03 1600 04/03 0804/03 0000 04/02 1600 04/02 0000 Intake Total 240 410 600 780 880 Output Total 300 450 Balance -60 -40 600 780 880 Intake, Blood 350 Product Intake, IV 100 120 300 400 Intake, Oral 140 60 480 480 480 Number 3 2 5 1 Bowel Movements Output, Urine 300 450 Physical Exam: gen: looks well. nad. alert. heent. anicteric. mmm. no ulcers abd; soft, nt. nd. no mass or guarding. Assessment/Plan Assessment/Plan persistent slow bleeding. ?diverticular in nature. stable. unclear if associated acute diverticulitis. observe.
[2016-04-03 14:29] VITALS: BP 162/90
--- NOTE | 2016-04-03 15:56 | PN- Att Addend ---
Attending Addendum Attending Brief Note Mrs. Moore has been agitated today but she is presently sleeping soundly. She is clinically stable. She continues on Unasyn for diverticulitis. She has reportedly had continued rectal bleeding but her H&H is stable after transfusion of 1 unit of packed red cells. GI has suggested a repeat CT scan of her abdomen which should be considered for tomorrow. Her other maintenance medications will be continued.
[2016-04-03 22:35] VITALS: BP 138/64
[2016-04-04 06:58] VITALS: BP 132/68
--- NOTE | 2016-04-04 07:19 | PN- Housestaff ---
Subjective Follow-up For: - GI bleed Subjective: Pt comfortable. Not oriented to time, place or person. Did not have any complaints. Vitals were stable. Guiac positive stools. Discussed w/ Dr Saravia who informed that the pt has ascending colon mass, which was notreported beofre. Also discussed w/ Dr Sandoval. Interval decrease in diverticulits. Likely source of bleeding is GI bleed is the mass. Review of Systems Constitutional: Reports: see HPI. Objective Last 24 Hrs of Vital Signs/I&O Vital Signs Date Time Temp Pulse Resp B/P Pulse O2 O2 Flow FiO2 Ox Delivery Rate 04/04 0658 97.7 64 20 132/68 94 Room Air 04/03 2235 90 20 138/64 93 04/03 2112 90 138/64 04/03 1429 98.2 60 20 162/90 94 Room Air / 0906 66 140/62 04/03 0906 66 140/62 Intake & Output 04/04 0800 02/ 0000 04/03 1600 Intake Total 225 175 600 Output Total 450 Balance 225 175 150 Intake, IV 125 125 120 Intake, Oral 100 50 480 Number 8 2 6 Bowel Movements Output, Urine 450 Physical Exam General Appearance: No Acute Distress Skin: No Breakdown HEENT: Atraumatic, PERRLA, EOMI Neck: No JVD, No thryomegaly Lymphatic: Cervical nl Cardiovascular: Regular Rate, Normal S1, Normal S2 Lungs: Normal Air Movement Abdomen: Normal Bowel Sounds, Soft, No Tenderness Neurological: Normal Speech, Strength at 5/5 X4 Ext, Normal Tone, Sensation Intact, Cranial Nerves 3-12 NL Extremities: No Cyanosis, No Edema Vascular: Pulses Symmetrical Current Medications: Current Medications Sig/Ines Start time Last Medication Dose Route Stop Time Status Admin Acetaminophen 650 MG Q6-PRN PRN 04/01 1430 AC PO Ampicillin Sodium/ 3,000 MG Q6H 04/01 2200 AC 04/04 Sulbactam Sodium IV 0407 Sodium Chloride 100 ML Atorvastatin Calcium 20 MG 1700 04/01 1700 AC 04/03 PO 1627 Ferrous Sulfate 325 MG DAILY 04 1000 AC 04/03 PO 0906 Losartan Potassium 50 MG DAILY 04/01 1750 AC 04/03 PO 09 Memantine 10 MG Q12 04/01 2200 AC 04/03 PO 211 Metoprolol Tartrate 12.5 MG Q12 04/01 2200 AC 04/03 PO 211 Morphine Sulfate 2 MG Q6P PRN 04/01 1430 AC 04/01 IV 1448 Multivitamins 1 TAB DAILY 04/02 1000 AC 04/03 Therapeutic PO 09 Omeprazole 40 MG DAILY AC 04/02 0700 AC 04/04 PO 0603 Potassium Chloride 40 MEQ ONCE ONE 04/03 1030 DC 04/03 PO 04/03 1031 1338 Trazodone HCl 25 MG AT BEDTIME 04/01 2199 AC 04/03 PO 211 Vitamin E 400 IU DAILY 04/02 1000 AC 04/03 PO 0907 Last 24 Hrs of Lab/Prakash Results Last 24 Hrs of Labs/Mics: Laboratory Tests 04/04/16 0652: Sodium Pending, Potassium Pending, Chloride Pending, Carbon Dioxide Pending, Anion Gap Pending, BUN Pending, Creatinine Pending, BUN/Creatinine Ratio Pending , CBC w Diff Pending, WBC Pending, RBC Pending, Hgb Pending, Hct Pending, MCV Pending, MCH Pending, RDW Pending, Plt Count Pending, MPV Pending, PUBS MCHC Pending Assessment/Plan Assessment: Patient remains confused with persistent of minor episode of bright red blood per rectum according to nursing staff. She received one unit of packed red blood cells yesterday for which her hemoglobin responded appropriately. Patients family is concerned about the CT scan finding suggestive of malignancy. She is to be maintained on IV unasyn and have a repeat CT scan of the abdomen tomorrow to assess for resolution of the bleed/abscess. Problem list: -Bright red blood per rectum, most likely diverticular bleed -Hypokalemia -Altered mental status -History of dementia Plan: -Monitor vital signs for hemodynamic instability -Monitor hemoglobin/hematocrit -Follow up Gen. surgery/gastroenterology recommendations -Call GI stat for active bleeding -Unasyn has been changed to augmentin. -Ct abdomen shows decrease in size of diverticulits. -Outpatient follow-up for renal mass -Advance diet as tolerated per GI -Restart baby aspirin if okay with cardio -Daily CBC Problem List: 1. Diverticulitis 2. GI bleed 3. Fall Pain Ratin Pain Location: none Pain Goal: Pain 4 or less Pain Plan: tyleonol Tomorrow's Labs & Rationales: cbc- pt has low H&H Consulting Request: Consulting Specialty: Gastroenterology Discharge Plan Discharge Disposition: STR/NH Stable for Discharge? Yes
[2016-04-04 08:09] LABS: ABSOLUTE BASOPHIL COUNT 0 /CUMM (0.0-0.2); ABSOLUTE EOSINOPHIL COUNT 0.1 /CUMM (0.0-0.7); ABSOLUTE LYMPH COUNT 1.8 /CUMM (1.2-3.4); ABSOLUTE MONOCYTE COUNT 0.8 /CUMM (0.10-0.60); BASOPHIL % 0.6 % (0.0-2.0); EOSINOPHIL % 1.2 % (0-5); GRANULOCYTE % 68.1 % (42.2-75.2); MEAN CORPUSCULAR HGB 28.2 PG (27.0-31.0); MEAN CORPUSCULAR HGB CONC 32.8 G/DL (33.0-37.0); MEAN CORPUSCULAR VOLUME 85.8 FL (81.0-99.0); PLATELET COUNT 204 /CUMM (130-400); RED BLOOD CELL CT 3.38 /CUMM (4.20-5.40); WHITE BLOOD CELL COUNT 8.8 /CUMM (4.8-10.8)
--- NOTE | 2016-04-04 09:41 | PN- Att Addend ---
Attending Addendum Attending Brief Note Patient denies abdominal pain although she continues to have blackish stools General Appearance: Alert, No Acute Distress Skin: Grossly normal HEENT: PEERLA Neck: Supple, No JVD Cardiovascular: Regular Rate, Normal S1, Normal S2, No Murmurs Lungs: Clear to Auscultation, Normal Air Movement Abdomen: Normal Bowel Sounds, Soft, No Tenderness Neurological: Normal Speech, Strength at 5/5 X4 Ext, Cranial Nerves 3-12 NL, Reflexes 2+ Extremities: No Clubbing, No Cyanosis, No Edema Vascular: Normal Pulses Assessment Complete resolution of abdominal pain. She has now completed 3 days of IV antibiotics. We'll discuss with surgery regarding transitioning to oral antibiotics. Hemoglobin has remained stable suggesting no active bleeds however at some point patient will need a colonoscopy. Plan Discuss with surgery regarding transitioning to oral antibiotics Advance diet to regular Continue to monitor H&H Hold all blood thinners May continue all other home meds Current Medications Sig/Ines Start time Last Medication Dose Route Stop Time Status Admin Acetaminophen 650 MG Q6-PRN PRN 04/01 1430 AC PO Ampicillin Sodium/ 3,000 MG Q6H 04/01 2200 AC 04/04 Sulbactam Sodium IV 0926 Sodium Chloride 100 ML Atorvastatin Calcium 20 MG 1700 04/01 1700 AC 04/03 PO 1627 Ferrous Sulfate 325 MG DAILY 04/02 1000 AC 04/04 PO 0926 Losartan Potassium 50 MG DAILY 04/01 1750 AC 04/04 PO 0927 Memantine 10 MG Q12 04/01 2200 AC 04/04 PO 0926 Metoprolol Tartrate 12.5 MG Q12 04/01 2200 AC 04/04 PO 0926 Morphine Sulfate 2 MG Q6P PRN 04/01 1430 AC 04/01 IV 1448 Multivitamins 1 TAB DAILY 04/02 1000 AC 04/04 Therapeutic PO 0927 Omeprazole 40 MG DAILY AC 04/02 0700 AC 04/04 PO 0603 Potassium Chloride 40 MEQ ONCE ONE 04/03 1030 DC 04/03 PO 04/03 1031 1338 Trazodone HCl 25 MG AT BEDTIME 04/01 2200 AC 04/03 PO 2112 Vitamin E 400 IU DAILY 04/02 1000 AC 04/04 PO 0926 Laboratory Tests 04/04 0652 Chemistry Sodium (137 - 145 mmol/L) 137 Potassium (3.5 - 5.1 mmol/L) 3.4 L Chloride (98 - 107 mmol/L) 102 Carbon Dioxide (22 - 30 mmol/L) 31 H Anion Gap (5 - 16) 3 L BUN (7 - 17 mg/dL) 5 L Creatinine (0.5 - 1.0 mg/dL) 0.5 Estimated GFR (>60 ml/min) > 60 BUN/Creatinine Ratio (7 - 25 %) 10.0 Hematology CBC w Diff NO MAN DIFF REQ WBC (4.8 - 10.8 /CUMM) 8.8 RBC (4.20 - 5.40 /CUMM) 3.38 L Hgb (12.0 - 16.0 G/DL) 9.5 L Hct (37 - 47 %) 29.0 L MCV (81.0 - 99.0 FL) 85.8 MCH (27.0 - 31.0 PG) 28.2 RDW (11.5 - 14.5 %) 15.0 H Plt Count (130 - 400 /CUMM) 204 MPV (7.4 - 10.4 FL) 11.0 H Gran % (42.2 - 75.2 %) 68.1 Lymphocytes % (20.5 - 51.1 %) 20.9 Monocytes % (1.7 - 9.3 %) 9.2 Eosinophils % (0 - 5 %) 1.2 Basophils % (0.0 - 2.0 %) 0.6 Absolute Granulocytes (1.4 - 6.5 /CUMM) 6.0 Absolute Lymphocytes (1.2 - 3.4 /CUMM) 1.8 Absolute Monocytes (0.10 - 0.60 /CUMM) 0.8 H Absolute Eosinophils (0.0 - 0.7 /CUMM) 0.1 Absolute Basophils (0.0 - 0.2 /CUMM) 0 PUBS MCHC (33.0 - 37.0 G/DL) 32.8 L Vital Signs Date Time Temp Pulse Resp B/P Pulse O2 O2 Flow FiO2 Ox Delivery Rate 04/04 926 67 160/70 04/04 09 67 160/70 04/04 0658 97.7 64 20 132/68 94 Room Air 04/03 2235 90 20 138/64 93 04/03 2112 90 138/64 04/03 1429 98.2 60 20 162/90 94 Room Air
--- NOTE | 2016-04-04 11:18 | Discharge Summary ---
Visit Information Visit Dates Admission Date: 04/01/16 Discharge Date: 04/05/16 Hospital Course Course Attending Physician: AJAY DAVIES MD Primary Care Physician: REROL WILKINSON MD Consulting Request: 1 Consulting Specialty: Gastroenterology Consulting Physician: Dr. Saucedo Reason for Consult: Rectal bleeding likely secondary to ascending mass Consulting Request: 2 Consulting Specialty: General Surgery Consulting Physician: Dr. Flores Reason for Consult: Surginal evaluation for diverticulitis Hospital Course: 89-year-old female with pmh of HTN, HLD, dementia, legally blind, normocytic anemia came from [facility] due to bright red blood per rectum and dark stool on day of admission. She has been noted to have bright red blood in her diaper over the preceding 2 days and had another bowel movement this morning with blood in it with black tarry stool. She has not been complaining of any significant abdominal pain nor has she had any significant nausea or vomiting. Prior to the blood she had reportedly been having normal bowel movements. The family denies ever having bleeding like this in the past. She has also never had a colonoscopy in the past. She is without any complaints of lightheadedness, shortness of breath, or chest pain. In the emergency room she was noted to have dark stool which was found to be guaiac positive, but no gross blood was appreciated. She was noted to have significant hemorrhoids. V/S: 97.7F MO 94 RR 15 BP 138/77 92% on RA On exam, General Appearance: Alert, Cooperative, No Acute Distress, oriented to place and person Skin: pale, HEENT: dry mucous membrabes, Neck: Supple, Cardiovascular: Regular Rate, systolic murmur, Lungs: Clear to Auscultation, Abdomen: Normal Bowel Sounds, Soft, No Tenderness Neurological: Strength at 5/5 X4 Ext, Sensation Intact, Cranial Nerves 3-12 NL, Extremities: No Edema Labs: WBC 6.7, Hb/Hct 8.8/26.8, plt 174, Na 137 K 3.0 BUN/Cr 15/0.6, lactic acid 1.0 EKG: Normal sinus rhythm without any acute ST-T wave changes. QTC 516 CT abdomen and pelvis angiogram : 1. No significant vascular abnormality. 2. Sigmoid diverticulitis. Suspect small peridiverticular abscess. 3. Enhancing right mid to upper pole renal mass. This is suspicious for neoplasm. Patient was admitted to general medicine floor for following problem lists; 1. Sigmoid diverticulitis with microperforation: Initial CT was showing mild early diverticulitis with microperforation. She was treated with IV unasyn for divericulitis, and GI/General surgery consults were obtained. The repeat ct scan on 04/04 showed resolution of her diverticulitis and was negative for a fluid collection. IV unasyn was changed to oral augmentin to complete 7 day course. 2. Lower GI bleeding likely secondary to ascending colon mass: Daily CBC was checked to maintain Hb > 7. She got 1 PRBC transfusion on 04/02 (Hb 7.8 -> 8.9). Her repeat CT scan on 04/04 revealed ascending colon mass which was not mentioned on the previous scans. Dr. Saucedo have discussed pursuing a colonoscopy with the famlily to biopsy the ascending colon mass, but family are unlikely to pursue surgery thereafter. Also as the mass is on the right side it is less likely to cause an obstruction and if she ever does develop obstructive symptoms then a stent can be placed and any blood loss from the tumor can be offset by supplemental iron or blood transfusions as needed. Please follow up a primary care doctor and GI doctor to consider an option of colonoscoly with underlying disease and age. 3. Rt. Renal mass: Patient needs to follow up with a primary doctor to evaluate renal mass. 4. HTN: We continued metoprolol 12.5mg bid and losartan 50mg daily. 5. HLD: We continued po lipitor 20mg daily. 6. Dementia: We continued memantine 10mg bid. DVT ppx: ALPS, DNR/I. Allergies: Coded Allergies: No Known Allergies (04/01/16) Significant Procedures: CT abdomen/pelvis without contrast 04/04/16 1. Interval improvement in previously seen sigmoid diverticulitis. There is, however, persistent diffuse thick-walled appearance of the sigmoid colon and an underlying mass cannot be excluded. There is also persistent linearly oriented inflammatory change along the left gonadal vein extending cranially. On noncontrast imaging, a partial thrombosis of the left gonadal vein cannot be entirely excluded. No evidence of pericolonic abscess formation or perforation is seen. 2. No significant change in ascending colonic mass, suspicious for a colonic neoplasm. Colonoscopic correlation is recommended when clinically appropriate. 3. Subcentimeter-sized lymph node in the ascending colon mesentery. No other adenopathy. 4. Suspicious mass in the upper pole of the right kidney, suspicious for a neoplasm. 5. 2 small hypodense masses seen in the pancreatic head, not adequately characterized. These may represent small cystic neoplasms of the pancreas versus small cysts/pseudocysts. Further assessment with MRI scan may be helpful. 6. Indeterminate nodular densities in the lung bases. Given the findings in the abdomen, full chest CT scan with contrast is recommended. Disposition Summary Disposition Principal Diagnosis: Sigmoid diverticulitis with microperforation Lower GI bleeding likely secondary to Rt. asceding colon Additional Diagnosis: Rt. renal mass HTN HLD Dementia Discharge Disposition: SNF Discharge Instructions General Discharge Information Code Status: Do Not Resucitate/Intubat Patient's Diet: Heart healthy diet Patient's Activity: Increase as tolerated Follow-Up Instructions/Appts: Please follow up with a primary doctor after discharge within 1 week Please follow up with Dr. Saucedo for future colonoscopy Medications at Discharge Discharge Medications: Continue taking these medications: Atorvastatin Calcium (Atorvastatin Calcium) 20 MG TABLET 1 Tablet ORAL DAILY Qty = 30 Trazodone HCl (Trazodone HCl) 50 MG TABLET 0.5 Tablet ORAL AT BED TIME as needed for INSOMNIA Qty = 7 Aspirin (Aspirin*) 81 MG TAB.CHEW 1 Tablet ORAL DAILY Olmesartan Medoxomil (Benicar) 20 MG TABLET 1 Tablet ORAL DAILY Vitamin E (Dl,Tocopheryl Acet) (Vitamin E) 400 UNIT CAPSULE 1 Capsule ORAL DAILY Ferrous Sulfate (Ferrous Sulfate) 325 MG (65 MG IRON) TABLET 1 Tablet ORAL DAILY Memantine HCl (Namenda) 10 MG TABLET 1 Tablet ORAL Q12HR Metoprolol Tartrate (Metoprolol Tartrate) 25 MG TABLET 0.5 Tablet ORAL EVERY 12 HOURS Instructions: HOLD FOR SBP < 100 OR HR < 60 Acetaminophen (Acephen) 650 MG SUPP.RECT 1 SUPPOSITORY RECTALLY Every 4 hours as needed for PAIN OR TEMP >100 Bisacodyl (Bisac-Evac) 10 MG SUPP.RECT 1 SUPPOSITORY RECTALLY DAILY as needed for CONSTIPATION Na Phos,M-B/Na Phos,Di-Ba (Fleet Enema) 19 GRAM-7 GRAM/118 ML ENEMA 1 Enema RECTAL DAILY as needed for CONSTIPATION Instructions: IF BISACODYL SUPP INEFFECTIVE Acetaminophen (Mapap) 500 MG CAPSULE 1 Capsule ORAL Every 4 hours as needed for PAIN OR TEMP > 100 Magnesium Hydroxide (Milk Of Magnesia) 400 MG/5 ML ORAL.SUSP 30 Milliliters ORAL DAILY as needed for CONSTIPATION Multivitamin (Daily Multiple Vitamin) 1 EACH TABLET 1 Tablet ORAL DAILY Start taking the following new medications: Augmentin (Augmentin 500-125 Tablet) 500 MG-125 MG TABLET 500 Milligram ORAL EVERY 12 HOURS Qty = 6 No Refills Copies To: MINH BROWN,ERROL Carranza; SAMSON BROWN,AJAY; TIO BROWN,DEEPTI; VIV FLORES MD
--- NOTE | 2016-04-04 11:21 | Patient Discharge Instructions ---
Discharge Instructions General Discharge Information You were seen/treated for: Sigmoid diverticulitis Ascending colonic mass Special Instructions: Please follow up with a primary doctor after discharge within 1 week Please follow up with Dr. Saucedo for future colonoscopy Diet Continue normal diet: Yes Recommended Diet: Regular Activity Full Activity/No Limits: Yes Activity Self Limited: No Additional ACTIVITY Info: Increase as tolerated Acute Coronary Syndrome Inclusion Criteria At DC or during hospital stay patient has or had the following: ACS DIAGNOSIS No Discharge Core Measures Meds if any: Prescribed or Continued at Discharge Meds if any: NOT Prescribed or Continued at Discharge Congestive Heart Failure Inclusion Criteria At DC or during hospital stay patient has or had the following: CHF DIAGNOSIS No Discharge Core Measures Meds if any: Prescribed or Continued at Discharge Meds if any: NOT Prescribed or Continued at Discharge Cerebrovascular accident Inclusion Criteria At DC or during hospital stay patient has or had the following: CVA/TIA Diagnosis No Discharge Core Measures Meds if any: Prescribed or Continued at Discharge Meds if any: NOT Prescribed or Continued at Discharge Venous thromboembolism Inclusion Criteria VTE Diagnosis No VTE Type NONE VTE Confirmed by (Test) NONE Discharge Core Measures - Per Current guidelines, there needs to be overlap - treatment for the first 5 days of Warfarin therapy. - If discharged on Warfarin prior to 5 days of - overlap therapy, the patient will need to be - assessed for post discharge needs including - *Post discharge parental anticoagulation - *Warfarin and/or parental anticoagulation education - *Follow up date to check INR post discharge At least 5 days overlap therapy as Inpatient No Meds if any: Prescribed or Continued at Discharge Note: Overlap Therapy is Warfarin and Anticoagulant Meds if any: NOT Prescribed or Continued at Discharge
[2016-04-04 13:46] VITALS: BP 112/60
--- NOTE | 2016-04-04 13:58 | CT SCAN REPORT ---
EXAMINATION: CT ABDOMEN AND PELVIS WITHOUT CONTRAST CLINICAL INFORMATION: GI bleed. Rule out mass. COMPARISON: CT scan of the abdomen and pelvis dated 04/01/2016. TECHNIQUE: Multidetector volumetric imaging was performed from the superior aspect of the liver through the pubic symphysis. Sagittal and coronal reformatted images were obtained on the technologist workstation. DLP: 375.51 mGy-cm. FINDINGS: LUNG BASES: There is a 0.6 x 0.3 cm noncalcified nodular densities seen in the inferior lingula (series 2, image 11). Scattered areas of reticular nodular opacities are also seen in the lung bases bilaterally in the subpleural and subdiaphragmatic locations, most prominently in the inferior right middle lobe and inferior left lower lobe (series 2, images 7 and 18). The left atrium and left ventricle are enlarged, unchanged. LIVER, GALLBLADDER, AND BILIARY TREE: The liver is normal in size, shape, and attenuation. No focal hepatic lesion on noncontrast imaging. No biliary ductal dilatation is present. The gallbladder is unremarkable with no evidence of radiopaque gallstones, gallbladder wall thickening, or obvious pericholecystic inflammatory changes. PANCREAS: Diffusely atrophic. In the pancreatic head, 2 indeterminate intermediate attenuation masses are seen, measuring 1.4 x 1.2 cm (series 2, image 34 and 1.2 x 0.8 cm (series 2, image 31), less well visualized than on prior CT scan. SPLEEN: Unremarkable. ADRENAL GLANDS: Diffusely hypertrophied without discrete mass seen. KIDNEYS AND URETERS: In the upper pole of the right kidney, there is a 1.7 cm diameter simple cyst (series 602, image 66). In addition, as seen previously, in the upper pole of the right kidney, there is an exophytic 2.6 cm diameter intermediate attenuation mass, which had demonstrated heterogeneous enhancement on prior exam, suspicious for a renal neoplasm. In the left kidney, there are 3 large simple cysts in the mid to upper pole, the largest of which measures 7 cm in diameter. Additional smaller 1.6 cm upper pole left renal cyst is seen. BLADDER: Unremarkable. GASTROINTESTINAL TRACT: Diffuse bowel wall thickening is seen in the proximal and mid sigmoid colon in region of prominent diverticulosis, similar to the prior exam. The previously seen associated pericolonic inflammatory changes have improved, suggesting improvement in acute diverticulitis. No pericolonic abscess formation is seen. There is some persistent inflammatory change seen extending from the sigmoid colon superiorly around the left gonadal vein, unchanged. There is a persistent hypodense mass in the ascending colon (series 2, image 39) measuring approximately 4 cm in diameter, suspicious for an ascending colonic neoplasm. No obstruction is seen in the pericolonic fat in this region is relatively preserved. A few tiny lymph nodes are seen in the mesentery of the ascending colon, measuring up to 0.5 cm in short axis. ABDOMINAL WALL: No significant hernia is appreciated. LYMPH NODES, VASCULAR: Dense atherosclerotic calcifications of the aorta and branch vessels are again seen. No significant retroperitoneal or pelvic adenopathy is seen. As mentioned above, there are small lymph nodes in the mesentery of the ascending colon, measuring up to 0.5 cm in short axis. PELVIC VISCERA: Unremarkable. OSSEOUS STRUCTURES: There are moderate degenerative changes throughout the thoracic spine and in the sacroiliac joints. IMPRESSION: 1. Interval improvement in previously seen sigmoid diverticulitis. There is, however, persistent diffuse thick-walled appearance of the sigmoid colon and an underlying mass cannot be excluded. There is also persistent linearly oriented inflammatory change along the left gonadal vein extending cranially. On noncontrast imaging, a partial thrombosis of the left gonadal vein cannot be entirely excluded. No evidence of pericolonic abscess formation or perforation is seen. 2. No significant change in ascending colonic mass, suspicious for a colonic neoplasm. Colonoscopic correlation is recommended when clinically appropriate. 3. Subcentimeter-sized lymph node in the ascending colon mesentery. No other adenopathy. 4. Suspicious mass in the upper pole of the right kidney, suspicious for a neoplasm. 5. 2 small hypodense masses seen in the pancreatic head, not adequately characterized. These may represent small cystic neoplasms of the pancreas versus small cysts/pseudocysts. Further assessment with MRI scan may be helpful. 6. Indeterminate nodular densities in the lung bases. Given the findings in the abdomen, full chest CT scan with contrast is recommended. Findings discussed with Dr. Tex Shook 04/04/2016, 1:45 PM.
--- NOTE | 2016-04-04 14:54 | PN- General Surgery ---
Surgical Brief Attending Note Brief Attending Note: Bloody BM per nursing report. Repeat CT performed today. I was contacted by radiologist re: findings. Small neoplasm of right kidney; Suspicious area in hepatic flexure of colon for malignancy and improved infammation of sigmoid colon. Timing of colonoscopy per GI.
--- NOTE | 2016-04-04 15:06 | PN- Gastroenterology ---
Assessment/Plan Assessment/Recommendations: Assessment: Ms. Nolasco is in 89-year-old female multiple medical problems admitted with brbrp and diverticulitis who has been doing reasonably well, but she has had some intermittent rectal bleeding since admission which I now suspect is secondary to the ascending colon mass which was noted on her recent ct scan being done to rule out an abscess from the diverticulitis, but was not mentioned on the previous scans. The ct scan showed resolution of her diverticulitis and was negative for a fluid collection so she can be changed to an oral course of abx to finish off a weeks course, but I don't feel that any further intervention is necessary for this at this time. I have discussed pursuing a colonoscopy with the famlily to biopsy the ascending colon mass, but as they are unlikely to pursue surgery I don't feel is necessary as it would be putting her through an invasive procedure and it would be unlikely to cell changer. Also as the mass is on the right side it is less likely to cause an obstruction and if she ever does develop obstructive symptoms than a stent can be placed and any blood loss from the tumor can be offset by supplemental iron or blood transfusions as needed. Recognitions: 1. Advance diet as tolerated 2. Follow daily CBC and transfuse as needed to keep hgb > 7 or as per cardiololgy recommendations. 3. Ok to restart baby asa if indicated for cardiac prophylaxis 4. Change to oral abx to complete a 5-7 day course or d/c if that is felt to be the cause of the rash 5. Pros and cons of pursuing a colonoscopy were discussed at length with the family and will hold off on that at this time. I will continue to follow this patient and make further recommendations based on her clinical course and results of repeat blood work and imaging. Problem List: 1. GI bleed 2. Diverticulitis Subjective Subjective: Pt had some rectal bleeding yesterday morning that hasn't persisted. She also has some abdominal pain which she is getting morphine for with good relief. She is without any vomiting. She has a rash on her back. Objective Vital Signs and I&Os Vital Signs Date Time Temp Pulse Resp B/P Pulse O2 O2 Flow FiO2 Ox Delivery Rate 04/04 1346 97.5 84 18 112/60 93 Room Air 04/04 0827 67 160/70 04/04 0926 67 160/70 04/04 0658 97.7 64 20 132/68 94 Room Air 04/03 2235 90 20 138/64 93 04/03 2112 90 138/64 Intake & Output 04/04 1600 04/04 0400 04/03 1600 04/03 0400 04/02 1600 04/02 0400 Intake Total 225 175 526 253 2864 880 Output Total 750 450 Balance 225 175 90 -40 1380 880 Intake, Blood 350 Product Intake, IV 125 125 220 420 400 Intake, Oral 100 50 620 60 960 480 Number 12 2 8 6 Bowel Movements Output, Urine 750 450 Physical Exam General Appearance: well developed/nourished, no apparent distress, comfortable Head: atraumatic, normal appearance Ears, Nose, Throat: normal pharynx, normal ENT inspection Neck: normal inspection, supple, full range of motion Respiratory: normal breath sounds, chest non-tender Cardiovascular: regular rate/rhythm Abdomen: normal bowel sounds, soft, non-tender Rectal: deferred Extremities: no edema Current Medications: Current Medications Sig/Ines Start time Last Medication Dose Route Stop Time Status Admin Acetaminophen 650 MG Q6-PRN PRN 04/01 1430 AC PO Ampicillin Sodium/ 3,000 MG Q6H 04/01 2200 AC 04/04 Sulbactam Sodium IV 0926 Sodium Chloride 100 ML Atorvastatin Calcium 20 MG 1700 / 1700 AC 04/03 PO 1627 Diphenhydramine HCl 50 MG ONCE ONE 04/04 1445 DC / PO 04/04 1446 1450 Ferrous Sulfate 325 MG DAILY / 1000 AC / PO 0926 Losartan Potassium 50 MG DAILY 04/01 1750 AC 04/04 PO 0927 Memantine 10 MG Q12 04/01 2200 AC 04/04 PO 0926 Metoprolol Tartrate 12.5 MG Q12 / 2200 AC 04/04 PO 0926 Morphine Sulfate 2 MG Q6P PRN / 1430 AC 02 IV 1415 Multivitamins 1 TAB DAILY 04/02 1000 AC 04/04 Therapeutic PO 0927 Omeprazole 40 MG DAILY AC 04/02 0700 AC 04/04 PO 0603 Patient Medication 1 ED .STK-MED ONE 04/04 1407 DC Teaching ED 04/04 1408 Potassium Chloride 20 MEQ ONCE ONE 04/04 1200 DC 04/04 PO 04/04 1201 1108 Potassium Chloride 40 MEQ ONCE ONE 04/04 1000 DC 02/06 PO 04/04 1001 1108 Trazodone HCl 25 MG AT BEDTIME 04/010 AC 04/03 PO 2112 Vitamin E 400 IU DAILY 04/02 1000 AC 04/04 PO 0926 Results Pertinent Lab Results: Laboratory Tests 04/04 04/03 0652 0700 Chemistry Sodium (137 - 145 mmol/L) 137 137 Potassium (3.5 - 5.1 mmol/L) 3.4 L 3.5 Chloride (98 - 107 mmol/L) 102 103 Carbon Dioxide (22 - 30 mmol/L) 31 H 28 Anion Gap (5 - 16) 3 L 6 BUN (7 - 17 mg/dL) 5 L 8 Creatinine (0.5 - 1.0 mg/dL) 0.5 0.5 Estimated GFR (>60 ml/min) > 60 > 60 BUN/Creatinine Ratio (7 - 25 %) 10.0 16.0 Hematology CBC w Diff NO MAN DIFF REQ NO MAN DIFF REQ WBC (4.8 - 10.8 /CUMM) 8.8 8.9 RBC (4.20 - 5.40 /CUMM) 3.38 L 3.16 L Hgb (12.0 - 16.0 G/DL) 9.5 L 8.9 L Hct (37 - 47 %) 29.0 L 27.4 L MCV (81.0 - 99.0 FL) 85.8 86.6 MCH (27.0 - 31.0 PG) 28.2 28.3 RDW (11.5 - 14.5 %) 15.0 H 14.6 H Plt Count (130 - 400 /CUMM) 204 172 MPV (7.4 - 10.4 FL) 11.0 H 11.4 H Gran % (42.2 - 75.2 %) 68.1 62.9 Lymphocytes % (20.5 - 51.1 %) 20.9 26.1 Monocytes % (1.7 - 9.3 %) 9.2 9.5 H Eosinophils % (0 - 5 %) 1.2 1.0 Basophils % (0.0 - 2.0 %) 0.6 0.5 Absolute Granulocytes (1.4 - 6.5 /CUMM) 6.0 5.6 Absolute Lymphocytes (1.2 - 3.4 /CUMM) 1.8 2.3 Absolute Monocytes (0.10 - 0.60 /CUMM) 0.8 H 0.8 H Absolute Eosinophils (0.0 - 0.7 /CUMM) 0.1 0.1 Absolute Basophils (0.0 - 0.2 /CUMM) 0 0 PUBS MCHC (33.0 - 37.0 G/DL) 32.8 L 32.7 L 04/02 04/01 0638 1701 Hematology CBC w Diff NO MAN DIFF REQ NO MAN DIFF REQ WBC (4.8 - 10.8 /CUMM) 8.3 7.3 RBC (4.20 - 5.40 /CUMM) 2.73 L 2.87 L Hgb (12.0 - 16.0 G/DL) 7.8 L 8.1 L Hct (37 - 47 %) 23.2 L 24.5 L MCV (81.0 - 99.0 FL) 84.9 85.4 MCH (27.0 - 31.0 PG) 28.5 28.2 RDW (11.5 - 14.5 %) 15.1 H 15.3 H Plt Count (130 - 400 /CUMM) 156 156 MPV (7.4 - 10.4 FL) 11.1 H 10.8 H Gran % (42.2 - 75.2 %) 63.9 64.3 Lymphocytes % (20.5 - 51.1 %) 25.9 23.6 Monocytes % (1.7 - 9.3 %) 9.4 H 11.4 H Eosinophils % (0 - 5 %) 0.4 0.3 Basophils % (0.0 - 2.0 %) 0.4 0.4 Absolute Granulocytes (1.4 - 6.5 /CUMM) 5.3 4.7 Absolute Lymphocytes (1.2 - 3.4 /CUMM) 2.1 1.7 Absolute Monocytes (0.10 - 0.60 /CUMM) 0.8 H 0.8 H Absolute Eosinophils (0.0 - 0.7 /CUMM) 0 0 Absolute Basophils (0.0 - 0.2 /CUMM) 0 0 PUBS MCHC (33.0 - 37.0 G/DL) 33.5 33.0 Imaging/Other Studies: FINDINGS: LUNG BASES: There is a 0.6 x 0.3 cm noncalcified nodular densities seen in the inferior lingula (series 2, image 11). Scattered areas of reticular nodular opacities are also seen in the lung bases bilaterally in the subpleural and subdiaphragmatic locations, most prominently in the inferior right middle lobe and inferior left lower lobe (series 2, images 7 and 18). The left atrium and left ventricle are enlarged, unchanged. LIVER, GALLBLADDER, AND BILIARY TREE: The liver is normal in size, shape, and attenuation. No focal hepatic lesion on noncontrast imaging. No biliary ductal dilatation is present. The gallbladder is unremarkable with no evidence of radiopaque gallstones, gallbladder wall thickening, or obvious pericholecystic inflammatory changes. PANCREAS: Diffusely atrophic. In the pancreatic head, 2 indeterminate intermediate attenuation masses are seen, measuring 1.4 x 1.2 cm (series 2, image 34 and 1.2 x 0.8 cm (series 2, image 31), less well visualized than on prior CT scan. SPLEEN: Unremarkable. ADRENAL GLANDS: Diffusely hypertrophied without discrete mass seen. KIDNEYS AND URETERS: In the upper pole of the right kidney, there is a 1.7 cm diameter simple cyst (series 602, image 66). In addition, as seen previously, in the upper pole of the right kidney, there is an exophytic 2.6 cm diameter intermediate attenuation mass, which had demonstrated heterogeneous enhancement on prior exam, suspicious for a renal neoplasm. In the left kidney, there are 3 large simple cysts in the mid to upper pole, the largest of which measures 7 cm in diameter. Additional smaller 1.6 cm upper pole left renal cyst is seen. BLADDER: Unremarkable. GASTROINTESTINAL TRACT: Diffuse bowel wall thickening is seen in the proximal and mid sigmoid colon in region of prominent diverticulosis, similar to the prior exam. The previously seen associated pericolonic inflammatory changes have improved, suggesting improvement in acute diverticulitis. No pericolonic abscess formation is seen. There is some persistent inflammatory change seen extending from the sigmoid colon superiorly around the left gonadal vein, unchanged. There is a persistent hypodense mass in the ascending colon (series 2, image 39) measuring approximately 4 cm in diameter, suspicious for an ascending colonic neoplasm. No obstruction is seen in the pericolonic fat in this region is relatively preserved. A few tiny lymph nodes are seen in the mesentery of the ascending colon, measuring up to 0.5 cm in short axis. ABDOMINAL WALL: No significant hernia is appreciated. LYMPH NODES, VASCULAR: Dense atherosclerotic calcifications of the aorta and branch vessels are again seen. No significant retroperitoneal or pelvic adenopathy is seen. As mentioned above, there are small lymph nodes in the mesentery of the ascending colon, measuring up to 0.5 cm in short axis. PELVIC VISCERA: Unremarkable. OSSEOUS STRUCTURES: There are moderate degenerative changes throughout the thoracic spine and in the sacroiliac joints. IMPRESSION: 1. Interval improvement in previously seen sigmoid diverticulitis. There is, however, persistent diffuse thick-walled appearance of the sigmoid colon and an underlying mass cannot be excluded. There is also persistent linearly oriented inflammatory change along the left gonadal vein extending cranially. On noncontrast imaging, a partial thrombosis of the left gonadal vein cannot be entirely excluded. No evidence of pericolonic abscess formation or perforation is seen. 2. No significant change in ascending colonic mass, suspicious for a colonic neoplasm. Colonoscopic correlation is recommended when clinically appropriate. 3. Subcentimeter-sized lymph node in the ascending colon mesentery. No other adenopathy. 4. Suspicious mass in the upper pole of the right kidney, suspicious for a neoplasm. 5. 2 small hypodense masses seen in the pancreatic head, not adequately characterized. These may represent small cystic neoplasms of the pancreas versus small cysts/pseudocysts. Further assessment with MRI scan may be helpful. 6. Indeterminate nodular densities in the lung bases. Given the findings in the abdomen, full chest CT scan with contrast is recommended.
[2016-04-04 22:33] VITALS: BP 140/60
--- NOTE | 2016-04-05 00:44 | NUR ---
PT ATTEMPT TO GET OOB MULTIPLE TIMES, HOSPITAL ADMINISTRATIVE ASSISTANT IN PLACE.
--- NOTE | 2016-04-05 06:01 | PN- Housestaff ---
Subjective Follow-up For: - GI bleed. Subjective: The patient was comfortable this morning. She did not have any complaints. No abdominal pain. Vitals were stable overnight. Review of Systems Constitutional: Reports: see HPI. Objective Last 24 Hrs of Vital Signs/I&O Vital Signs Date Time Temp Pulse Resp B/P Pulse O2 O2 Flow FiO2 Ox Delivery Rate 04/04 2233 98.4 84 18 140/60 93 Room Air 04/04 2151 84 140/60 04/04 1600 Room Air 04/04 1346 97.5 84 18 112/60 93 Room Air 04/04 0927 67 160/70 04/04 0926 67 160/70 04/04 0658 97.7 64 20 132/68 94 Room Air Intake & Output 04/05 0800 04/05 0000 04/04 1600 Intake Total 600 480 Output Total 500 200 Balance 100 280 Intake, IV 120 Intake, Oral 480 480 Number 1 6 Bowel Movements Output, Urine 500 200 Physical Exam General Appearance: No Acute Distress Other Physical Findings: General Exam: AAOx0, No acute distress, Skin: No rashes, no breakdown HEENT: PERRLA, EOMI Neck: Supple, No JVD No cervical lymphadenopathy CVS: Reg Rate, Normal S1,S2, No MGR Resp: Normal air entry, no ronchi/rales Abdomen: Soft, No tenderness, Normal Bowel Sounds Neuro: Normal Speech, Strength 5/5 b/l x 4 extremities, Sensation intact, CN III -XII NL, Reflexes 2+ Extremities: No cyanosis, pedal edema Current Medications: Current Medications Sig/Ines Start time Last Medication Dose Route Stop Time Status Admin Acetaminophen 650 MG Q6-PRN PRN 04/01 1430 AC PO Amoxicillin/ 500 MG Q12 04/04 2200 AC 04/04 Clavulanate Potassium PO 2149 Ampicillin Sodium/ 3,000 MG Q6H / 2200 DC 04/04 Sulbactam Sodium IV 1618 Sodium Chloride 100 ML Atorvastatin Calcium 20 MG 1700 04/01 1700 AC 04/04 PO 1618 Diphenhydramine HCl 50 MG .STK-MED ONE 04/04 1446 DC PO 04/04 1447 Diphenhydramine HCl 50 MG ONCE ONE 04/04 1445 DC 02 PO 04/04 1446 1450 Ferrous Sulfate 325 MG DAILY 04/02 1000 AC 04/04 PO 0926 Losartan Potassium 50 MG DAILY 04/01 1750 AC 04/04 PO 09 Memantine 10 MG Q12 04/01 2200 AC 04/04 PO 214 Metoprolol Tartrate 12.5 MG Q12 04/01 2200 AC 04/04 PO 215 Morphine Sulfate 2 MG Q6P PRN 04/01 1430 AC 04/04 IV 1415 Multivitamins 1 TAB DAILY 04/02 1000 AC 04/04 Therapeutic PO 09 Omeprazole 40 MG DAILY AC 04/02 0700 AC 04/04 PO 0603 Patient Medication 1 ED .STK-MED ONE 04/04 1407 DC Teaching ED 04/04 1408 Potassium Chloride 20 MEQ ONCE ONE 04/04 1200 DC 04/04 PO 04/04 1201 1108 Potassium Chloride 40 MEQ ONCE ONE 04/04 1000 DC 04/04 PO 04/04 1001 1108 Trazodone HCl 25 MG AT BEDTIME 04/01 2200 AC 04/04 PO 214 Vitamin E 400 IU DAILY 04/02 1000 AC 04/04 PO 09 Last 24 Hrs of Lab/Prakash Results Last 24 Hrs of Labs/Mics: Laboratory Tests 04/04/16 0652: Anion Gap 3 L, Estimated GFR > 60, BUN/Creatinine Ratio 10.0, CBC w Diff NO MAN DIFF REQ, RBC 3.38 L, MCV 85.8, MCH 28.2, RDW 15.0 H, MPV 11.0 H, Gran % 68.1 , Lymphocytes % 20.9, Monocytes % 9.2, Eosinophils % 1.2, Basophils % 0.6, Absolute Granulocytes 6.0, Absolute Lymphocytes 1.8, Absolute Monocytes 0.8 H, Absolute Eosinophils 0.1, Absolute Basophils 0, PUBS MCHC 32.8 L Assessment/Plan Assessment: Patient remains confused with persistent of minor episode of bright red blood per rectum according to nursing staff. She received one unit of packed red blood cells yesterday for which her hemoglobin responded appropriately. Patients family is concerned about the CT scan finding suggestive of malignancy. She is to be maintained on IV unasyn and have a repeat CT scan of the abdomen tomorrow to assess for resolution of the bleed/abscess. Problem list: -Bright red blood per rectum, most likely diverticular bleed -Hypokalemia -Altered mental status -History of dementia Plan: -Monitor vital signs for hemodynamic instability -Monitor hemoglobin/hematocrit -Follow up Gen. surgery/gastroenterology recommendations -Call GI stat for active bleeding -Unasyn has been changed to augmentin. -Ct abdomen shows decrease in size of diverticulits. -Outpatient follow-up for renal mass -Advance diet as tolerated per GI -Daily CBC Problem List: 1. GI bleed 2. Diverticulitis 3. Dementia Pain Ratin Pain Location: None Pain Goal: Pain 4 or less Pain Plan: Tylenol when necessary Tomorrow's Labs & Rationales: No labs necessary. Patient to be discharged. Consulting Request: Consulting Specialty: General Surgery Consulting Physician: Dr. Sandoval Reason for Consult: Surginal evaluation for diverticulitis
[2016-04-05 06:22] VITALS: BP 142/58
--- NOTE | 2016-04-05 06:48 | NUR ---
PT COMBATIVE WITH DOORS PREFITTER, MULTIPLE ATTEMPTS TO GET OOB, REFUSED TO TAKE AM MEDICATIONS.
[2016-04-05] MEDS ORDERED: AUGMENTIN 500-1 EACH PO (09:03)
[2016-04-05 09:19] LABS: ABSOLUTE BASOPHIL COUNT 0 /CUMM (0.0-0.2); ABSOLUTE EOSINOPHIL COUNT 0.1 /CUMM (0.0-0.7); ABSOLUTE GRANULOCYTE CT 5.1 /CUMM (1.4-6.5); ABSOLUTE LYMPH COUNT 1.8 /CUMM (1.2-3.4); ABSOLUTE MONOCYTE COUNT 0.8 /CUMM (0.10-0.60); BASOPHIL % 0.4 % (0.0-2.0); EOSINOPHIL % 1.7 % (0-5); GRANULOCYTE % 64.4 % (42.2-75.2); HEMATOCRIT 31.4 % (37-47); MEAN CORPUSCULAR HGB 28.7 PG (27.0-31.0); MEAN CORPUSCULAR HGB CONC 33.3 G/DL (33.0-37.0); MEAN CORPUSCULAR VOLUME 86.3 FL (81.0-99.0); MEAN PLATELET VOLUME 10.6 FL (7.4-10.4); PLATELET COUNT 217 /CUMM (130-400); RBC DISTRIBUTION WIDTH 15.3 % (11.5-14.5); RED BLOOD CELL CT 3.64 /CUMM (4.20-5.40); WHITE BLOOD CELL COUNT 7.9 /CUMM (4.8-10.8)
--- NOTE | 2016-04-05 09:46 | PN- Att Addend ---
Attending Addendum Attending Brief Note Patient denies abdominal pain although she continues to have blackish stools General Appearance: Alert, No Acute Distress Skin: Grossly normal HEENT: PEERLA Neck: Supple, No JVD Cardiovascular: Regular Rate, Normal S1, Normal S2, No Murmurs Lungs: Clear to Auscultation, Normal Air Movement Abdomen: Normal Bowel Sounds, Soft, No Tenderness Neurological: Normal Speech, Strength at 5/5 X4 Ext, Cranial Nerves 3-12 NL, Reflexes 2+ Extremities: No Clubbing, No Cyanosis, No Edema Vascular: Normal Pulses Assessment Complete resolution of abdominal pain. She is currently on oral antibiotics for presumed diverticulitis. Hemoglobin has remained stable suggesting no active bleeds. Patient has right-sided colonic mass with possible neoplasm or for right kidney and neurological densities of lung bases. Likely suggesting metastatic cancer and however she will need roldan CAT scan with contrast to further evaluate. However based on my understanding family at this time did not want to pursue colonoscopy or any other further invasive diagnostic workup. I have left a message with patient's daughter to discuss further plan in the event family is opting for conservative management. Plan Continue oral antibiotics for total 10 days Advance diet to regular Continue to monitor H&H Hold all blood thinners May continue all other home meds Current Medications Sig/Ines Start time Last Medication Dose Route Stop Time Status Admin Acetaminophen 650 MG Q6-PRN PRN 04/01 1430 AC PO Amoxicillin/ 500 MG Q12 04/04 2200 AC 04/04 Clavulanate Potassium PO 2149 Ampicillin Sodium/ 3,000 MG Q6H 04/01 2200 DC 04/04 Sulbactam Sodium IV 1618 Sodium Chloride 100 ML Atorvastatin Calcium 20 MG 1700 04/01 1700 AC 04/04 PO 1618 Diphenhydramine HCl 50 MG .STK-MED ONE 04/04 1446 DC PO / 1447 Diphenhydramine HCl 50 MG ONCE ONE 04/04 1445 DC 02/ PO 04/04 1446 1450 Ferrous Sulfate 325 MG DAILY /04 1000 AC 04/04 PO 0926 Losartan Potassium 50 MG DAILY / 1750 AC 04/04 PO 0927 Memantine 10 MG Q12 / 2200 AC 04/04 PO 2149 Metoprolol Tartrate 12.5 MG Q12 04/01 2200 AC 04/04 PO 2151 Morphine Sulfate 2 MG Q6P PRN 04/01 1430 AC 02 IV 1415 Multivitamins 1 TAB DAILY 04/02 1000 AC 04/04 Therapeutic PO 0927 Omeprazole 40 MG DAILY AC 04/02 0700 AC 04/04 PO 0603 Patient Medication 1 ED .STK-MED ONE 04/04 1407 DC Teaching ED 04/04 1408 Potassium Chloride 20 MEQ ONCE ONE 04/04 1200 DC 04/04 PO 04/04 1201 1108 Potassium Chloride 40 MEQ ONCE ONE 04/04 1000 DC / PO 04/04 1001 1108 Trazodone HCl 25 MG AT BEDTIME 04/01 2200 AC 04/04 PO 2149 Vitamin E 400 IU DAILY 04/02 1000 AC 04/04 PO 0926 Laboratory Tests 04/05 729 Chemistry Sodium Pending Potassium Pending Chloride Pending Carbon Dioxide Pending Anion Gap Pending BUN Pending Creatinine Pending BUN/Creatinine Ratio Pending Hematology CBC w Diff NO MAN DIFF REQ WBC (4.8 - 10.8 /CUMM) 7.9 RBC (4.20 - 5.40 /CUMM) 3.64 L Hgb (12.0 - 16.0 G/DL) 10.5 L Hct (37 - 47 %) 31.4 L MCV (81.0 - 99.0 FL) 86.3 MCH (27.0 - 31.0 PG) 28.7 RDW (11.5 - 14.5 %) 15.3 H Plt Count (130 - 400 /CUMM) 217 MPV (7.4 - 10.4 FL) 10.6 H Gran % (42.2 - 75.2 %) 64.4 Lymphocytes % (20.5 - 51.1 %) 23.0 Monocytes % (1.7 - 9.3 %) 10.5 H Eosinophils % (0 - 5 %) 1.7 Basophils % (0.0 - 2.0 %) 0.4 Absolute Granulocytes (1.4 - 6.5 /CUMM) 5.1 Absolute Lymphocytes (1.2 - 3.4 /CUMM) 1.8 Absolute Monocytes (0.10 - 0.60 /CUMM) 0.8 H Absolute Eosinophils (0.0 - 0.7 /CUMM) 0.1 Absolute Basophils (0.0 - 0.2 /CUMM) 0 PUBS MCHC (33.0 - 37.0 G/DL) 33.3 Vital Signs Date Time Temp Pulse Resp B/P Pulse O2 O2 Flow FiO2 Ox Delivery Rate 04/05 621 97.9 79 19 142/58 94 Room Air 04/04 2233 98.4 84 18 140/60 93 Room Air 04/04 2151 84 140/60 04/04 1600 Room Air 04/04 1346 97.5 84 18 112/60 93 Room Air
[2016-04-05 12:22] VITALS: BP 142/58
== END 2016-04-05 13:51 | DRG 375 ==
LOC: ENRESERVDT → ENRESERVTM → ERH 07:15 → ENPENDDIS 10:21 → 2NA 10:21 → ERHI 10:21 → 2NA 11:57
PROVIDERS: Emergency Medicine; Internal Medicine; Internal Medicine Endocrinology, Diabetes & Metabolism; Internal Medicine Interventional Cardiology; ADMIT Internal Medicine
PROC: 30233N1 Transfusion of Nonautologous Red Blood Cells into Peripheral Vein, Percutaneous Approach (ICD-10-PCS; principal; 2016-04-02)
DX: C18.2 Malignant neoplasm of ascending colon (principal); K57.20 Diverticulitis of large intestine with perforation and abscess without bleeding; F03.90 Unspecified dementia, unspecified severity, without behavioral disturbance, psychotic disturbance, mood disturbance, and anxiety; K92.2 Gastrointestinal hemorrhage, unspecified; D62 Acute posthemorrhagic anemia; N28.89 Other specified disorders of kidney and ureter; I10 Essential (primary) hypertension; E78.5 Hyperlipidemia, unspecified; E87.6 Hypokalemia
CPT/HCPCS: 2NASP; 36415; 74174; 74176; 82436; 86920; 93005; 93010; 97116-GO; 97161-GP; 97530-GO; J3490; J7042; P9016

== ENCOUNTER 2016-08-16 17:23 | Emergency (ER) | payer OTHER, MEDICARE ==
[~2016-08-16 17:23] MED LIST changes: +ACEPHEN650 M1 PR; +ASPIRIN81 M4 PO; +AUGMENTIN 500-1 EACH PO; +BISAC-EVAC10 M1 PR; +DAILY MULTIPLE1 EACH PO; +FERROUS SULFAT325 M3 PO; +FLEET ENEMA133 ML RC; +MAPAP500 M2 PO; +MILK OF MA400 MG/52 PO; +NAMENDA10 M2 PO; +TRAZODONE HCL50 M1 PO; +VITAMIN E400 UNI1 PO
[2016-08-16 17:25] VITALS: BP 174/80
[2016-08-16] MEDS ORDERED: NUTRITIONAL SU237 ML PO (17:40)
[2016-08-16] MEDS ORDERED: DURAGESIC1 EAC1 TOP (17:42)
[2016-08-16] MEDS ORDERED: REMERON15 M2 PO (17:44)
[2016-08-16] MEDS ORDERED: PAIN & FEVER325 M1 PO (17:44)
[2016-08-16] MEDS ORDERED: LORAZEPAM2 MG/1 M2 SL ×2 (17:45→17:50)
[2016-08-16] MEDS ORDERED: LEVSIN0.125 M1 PO (17:46)
[2016-08-16] MEDS ORDERED: ACETAMINOPHEN325 M2 PO (17:48)
[2016-08-16] MEDS ORDERED: MORPHINE S20 MG/5 ML SL (17:49)
--- NOTE | 2016-08-16 18:47 | ED GENERAL ADULT ---
History of Present Illness General Chief Complaint: Fall Stated Complaint: FALL Source: patient, family, EMS Exam Limitations: dementia Vital Signs & Intake/Output Vital Signs & Intake/Output Vital Signs Date Time Temp Pulse Resp B/P B/P Pulse O2 O2 Flow FiO2 Mean Ox Delivery Rate 08/16 1725 97.7 88 18 174/80 96 Room Air Allergies Coded Allergies: No Known Allergies (04/01/16) Reconcile Medications Acetaminophen (Acephen) 650 MG SUPP.RECT 1 SUPP AR Q4 PRN PAIN OR TEMP >100 ( Reported) Acetaminophen (Pain & Fever) 325 MG TABLET 2 TAB PO BID PAIN (Reported) Acetaminophen 325 MG TABLET 2 TAB PO Q4H PRN PAIN/TEMP</100 (Reported) Bisacodyl (Bisac-Evac) 10 MG SUPP.RECT 1 SUPP AR PRN CONSTIPATION (Reported) Fentanyl (Duragesic) 12 MCG/HOUR PATCH.TD72 1 PAT TOP Q72H PAIN (Reported) Hyoscyamine (Levsin) 0.125 MG TABLET 1 TAB PO Q4 PRN INCREASED SECRETIONS ( Reported) Lactose-Reduced Food (Nutritional Supplement) 237 ML LIQUID 120 ML PO AD SUPPLEMENT (Reported) Lorazepam 2 MG/ML ORAL.CONC 0.5 ML SL Q8H UNKNOWN (Reported) Lorazepam 2 MG/ML ORAL.CONC 0.25 ML SL Q6H PRN INCREASED AGITATION (Reported) Magnesium Hydroxide (Milk Of Magnesia) 400 MG/5 ML ORAL.SUSP 30 ML PO DAILY PRN CONSTIPATION (Reported) Mirtazapine (Remeron) 15 MG TABLET 0.5 TAB PO QHS UNKNOWN (Reported) Morphine Sulfate 20 MG/5 ML (4 MG/ML) SOLUTION 5 MG SL Q2H PRN SEVERE PAIN/ RESPIRATORY DISTRE (Reported) Na Phos,M-B/Na Phos,Di-Ba (Fleet Enema) 19 GRAM-7 GRAM/118 ML ENEMA 1 E RC DAILY PRN CONSTIPATION (Reported) IF BISACODYL SUPP INEFFECTIVE Trazodone HCl 50 MG TABLET 0.5 TAB PO QAM UNKNOWN (Reported) Triage Note: BIBA FROM SNF S/P WITNESSED MECHANICAL FALL WHILE ATTEMPTING TO GET OUT OF W/C UNASSISTED. PER EMS PT LANDED ON BUTTOCKS, THEN HEAD HIT GROUND ON RIGHT OCCIPUT. NO VISIBLE BRUISING/TRAUMA TO ANY AREAS, PT DENIES PAIN ON ARRIVAL AND IS ALERT/CONFUSED (PER FACILITY MENTAL STATUS AT BASELINE) COURTNEY PURPOSEFULLY. ARRIVES WITH DNR/DNI TRANSFER FORM FROM F AND CALL RECIEVED ON PT'S ARRIVAL FROM [facility] STATING PT IS A HOSPICE PT AND [facility] WILL NEED TO D/C PT FROM HOSPICE IF SHE IS TO HAVE A W/U HERE. D/W PA AND WITH DTR AT BEDSIDE--DTR STATING "I ONLY WANT HER TO HAVE A WORKUP IF SHE REALLY NEEDS IT; THE RESIDENTIAL TOLD ME I DIDN'T HAVE A CHOICE AND THEY HAD TO SEND HER BECAUSE SHE FELL." Triage Nurses Notes Reviewed? yes HPI: 89-year-old female with history of dementia, hypertension, hyperlipidemia sent in by ambulance from [facility] status post mechanical fall approximately 2 hours ago. Patient had slipped out of her wheelchair landing on her buttocks, and then tipped over hitting her head on the floor. Denies loss of consciousness. Not currently on any anticoagulation. Daughter at bedside and reports patient is acting at her baseline behavior. Daughter is the patient's positive returnee currently expressing care that she does not want a workup as her mother is currently a hospice patient. States that she did not want her mother sent to the ED for evaluation but was told that she had no choice. (LONNY PAVON,JULIA) Past History Medical History Any Pertinent Medical History? see below for history Neurological: dementia EENT: macular degeneration, LEGALLY BLIND Cardiovascular: hypertension, hyperlipidemia, MURMUR Respiratory: NONE Gastrointestinal: diverticulitis Hepatic: NONE Renal: NONE Musculoskeletal: MUSCLE WEAKNESS Psychiatric: INSOMINA Endocrine: NONE Blood Disorders: NONE Cancer(s): NONE PAINTER PLATE/Reproductive: NONE History of MRSA: No History of VRE: No History of CDIFF: No Influenza Vaccine: 12/29/15 Surgical History Surgical History: hysterectomy, thyroid surg, breast surg Psychosocial History Who do you live with Patient/Self Services at Home None What is your primary language Romanian Family History Hx Contributory? No (LONNY PAVON,JULIA) Review of Systems Review of Systems Constitutional: Reports: no symptoms. EENTM: Reports: no symptoms. Respiratory: Reports: no symptoms. Cardiovascular: Reports: no symptoms. GI: Reports: no symptoms. Genitourinary: Reports: no symptoms. Musculoskeletal: Reports: no symptoms. Skin: Reports: no symptoms. Neurological/Psychological: Reports: no symptoms. Hematologic/Endocrine: Reports: no symptoms. (JULIA MUKHERJEE PA-C) Physical Exam Physical Exam General Appearance: well developed/nourished, no apparent distress, alert, awake , comfortable Head: atraumatic Ears, Nose, Throat: normal ENT inspection Neck: normal inspection, supple, full range of motion, no midline tenderness Respiratory: normal breath sounds, chest non-tender, lungs clear Cardiovascular: regular rate/rhythm, normal peripheral pulses Gastrointestinal: normal bowel sounds, soft, non-tender Back: normal inspection, no vertebral tenderness Neurologic/Psych: no motor/sensory deficits, awake, alert, normal mood/affect, abnormal LAW FIRM CONSULTANT II-XII, oriented x1, to person only, not to place and time ( daughter states this is her baseline) Skin: intact, normal color, warm/dry Core Measures ACS in differential dx? No CVA/TIA Diagnosis: No Severe Sepsis Present: No Septic Shock Present: No (JULIA MUKHERJEE PA-C) Progress Differential Diagnoses I considered the following diagnoses in my evaluation of the patient: [Head contusion versus cranial fracture versus intracranial hemorrhage] Plan of Care: Family offered head CT given the patient's age. Daughter at bedside who is the power of business analytics analyst and adamantly expresses that she would like to decline head CT at this time. States that her mother is a hospice patient and even if the scan are positive they would defer treatment, therefore she does not wish to put her mother through the scan. Dr. Cooper evaluated patient and is in agreement with plan to defer head CT scan and send patient back to her facility. Initial ED EKG: none (JULIA MUKHERJEE PA-C) Departure Departure Disposition: HOME OR SELF CARE Condition: Stable Clinical Impression Primary Impression: Head contusion Secondary Impressions: Fall Referrals: AJAY DAVIES MD (PCP/Family) Additional Instructions: Return to the ED for any normal worsening symptoms. Departure Forms: Customer Survey General Discharge Information (JULIA MUKHERJEE PA-C) PA/FARM LOAN REPRESENTATIVE Co-Sign Statement Statement: ED Attending supervision documentation- [X] I saw and evaluated the patient. I have also reviewed all the pertinent lab results and diagnostic results. I agree with the findings and the plan of care as documented in the PA's/FARM LOAN REPRESENTATIVE's documentation. [X] I have reviewed the ED Record and agree with the PA's/FARM LOAN REPRESENTATIVE's documentation. [] Additions or exceptions (if any) to the PAs/FARM LOAN REPRESENTATIVE's note and plan are summarized below: [] (VANESSA BROWN,TAWANNA) Critical Care Note Critical Care Note Critical Care Time: non-applicable (LONNY PAVON,JULIA)
== END 2016-08-16 19:18 ==
LOC: ERH 17:23
DX: S00.93XA Contusion of unspecified part of head, initial encounter (principal); W05.0XXA Fall from non-moving wheelchair, initial encounter; Y93.9 Activity, unspecified; Y92.9 Unspecified place or not applicable
CPT/HCPCS: 99282